=== PATIENT | female | born 1975 | race Caucasian/White ===

== ENCOUNTER → 2020-04-21 13:05 | Outpatient (BNVA) | payer OTHER, SELFPAY | PROVIDERS: PCP Internal Medicine; Referring Provider Internal Medicine; Visit Provider Physician Assistant | DX: M17.12 Unilateral primary osteoarthritis, left knee (principal) | CPT/HCPCS: 20610; 99213; J1040 ==

== ENCOUNTER → 2020-05-09 13:47 | Outpatient (BNVA) | payer OTHER, SELFPAY | PROVIDERS: PCP Internal Medicine; Referring Provider Internal Medicine; Visit Provider Urology | DX: Z76.89 Persons encountering health services in other specified circumstances (principal) ==

== ENCOUNTER → 2020-10-10 14:38 | Outpatient (BNVA) | payer OTHER, SELFPAY | PROVIDERS: PCP Internal Medicine; Visit Provider Urology ==

== ENCOUNTER 2020-10-18 08:07 | Outpatient (REF) | payer OTHER, SELFPAY ==
--- NOTE | ~2020-10-18 | XR_ITS ---
EXAMINATION: XR SHOULDER, LEFT CLINICAL INFORMATION: Shoulder pain. COMPARISON: None. TECHNIQUE: 3 views of the left shoulder. FINDINGS: Mild glenohumeral joint arthritis. No fracture or dislocation. AC joint is intact. No abnormal soft tissue calcification. XR/XR shoulder LT min 2V IMPRESSION: Mild glenohumeral joint arthritis.
== END 2020-10-18 08:08 | disposition home or self-care (01) ==
LOC: HO.HOSX 08:07
PROVIDERS: Visit Provider Physician Assistant
DX: M75.42 Impingement syndrome of left shoulder (principal); M25.512 Pain in left shoulder
CPT/HCPCS: 20610; 73030; 99212; J1020

== ENCOUNTER 2020-11-01 10:04 | Outpatient (REF) | payer OTHER, SELFPAY ==
[2020-11-01 11:24] LABS: Blood Urea Nitrogen 15 mg/dL (9-16); Estimated Glomerular Filt Rate > 60
== END 2020-11-01 10:05 | disposition home or self-care (01) ==
LOC: HO.LAB 10:04
PROVIDERS: PCP Internal Medicine; Visit Provider Urology
DX: C64.2 Malignant neoplasm of left kidney, except renal pelvis (principal); N26.1 Atrophy of kidney (terminal)
CPT/HCPCS: 36415; 82565; 84520

== ENCOUNTER 2020-11-01 14:50 | Emergency (ER) | payer OTHER, SELFPAY ==
[2020-11-01 15:02] VITALS: BP 97/57; PULSE 86; RESP 18; TEMP 35.6; O2SAT 95; BMI 21.8
[2020-11-01 15:32] LABS: Glucose, Whole Blood 89 mg/dL (60-115)
[2020-11-01] MEDS: Dextrose 5 % and 0.9 % NaCl 1,000 ML 100 ML IVCONT (16:55)
--- NOTE | 2020-11-01 17:05 | ED_ITS ---
HPI - Alcohol General Chief Complaint: ETOH/Substance Use Stated Complaint: DIZZY,ANXIETY Time Seen by Provider: 11/01/20 16:31 Source: patient, family and EMS Mode of arrival: EMS Limitations: no limitations History of Present Illness HPI narrative: 45 yo female with history of type 1 diabetes, history of DKA, kidney cancer, anxiety, depression, alcohol abuse, active smoker who presents to the ED via EMS with report of diabetic emergency. Per patient's significant other she was confused and agitated and this usually happens when her sugar is very high or very low. He states the insulin reader machine was alarming all night saying her sugar was high. She ate spaghetti-O's late last night. On EMS arrival patient's glucose was noted to be 185. They reported she drank 3 pints of liquor. She denies daily ETOH use, admits to binge drinking a few times per week. Denies illicit drug use. She denies pain or injury. On arrival she smells of alcohol and is confused. MD complaint: alcohol intoxication Last drink: Just prior to admission Chronic alcohol use: Yes Previous visits for alcohol intoxication: Yes Recent trauma: No Associated symptoms: denies other symptoms Treatments prior to arrival: none Related Data Home Medications Medication Instructions Recorded Confirmed atorvastatin 40 mg tablet 40 mg PO DAILY 04/10/20 04/15/20 insulin lispro 100 unit/mL 1 sliding scale dose SUBCUT 04/10/20 04/15/20 subcutaneous cartridge USEASDIRECTD lisinopril 5 mg tablet 5 mg PO DAILY 04/10/20 04/15/20 insulin lispro 100 unit/mL SUBCUT 05/09/20 subcutaneous solution blood sugar diagnostic #10 ea 10/10/20 blood-glucose meter #1 ea 10/10/20 insulin glargine 100 unit/mL (3 12 unit SUBCUT BID 10/10/20 mL) subcutaneous pen insulin syringe-needle U-100 0.5 #10 ea 10/10/20 mL 31 gauge x 11/26 ondansetron HCl 4 mg tablet mg PO 10/10/20 pen needle, diabetic 32 gauge x #50 ea 10/10/20 Previous Rx's Medication Instructions Recorded leg brace #1 ea 06/21/20 Allergies Allergy/AdvReac Type Severity Reaction Status Date / Time morphine [MORPHINE] Allergy Unknown RASH Verified 04/21/20 13:13 LOBSTER Allergy Unknown HIVES Uncoded 03/30/20 17:17 Review of Systems Review of Systems: Yes Unobtainable due to mental condition [facility] Past Medical History Attestation statement: The following information was validated with the patient. 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 Restless in the stretcher at times. Head: normocephalic, atraumatic. Eyes: Pupils equal, round and reactive to light. ENT: Pharynx normal. Neck: Normal inspection. Neck supple. CVS: Normal heart rate and rhythm. Pulses normal. Respiratory: No respiratory distress. Breath sounds normal. Abdomen: Soft and nontender. +BS x4 Skin: Skin warm and dry. Normal skin color. Normal skin turgor. No rashes. Extremities: No lower extremity edema. Neuro: Oriented X 2, slurred speech, moves all 4 extremities spontaneously, intermittently follows commands, non-focal. Course Course Course Narrative: 45 y/o female arriving via EMS intoxicated. Unable to get reliable history from her. Her significant other is at the bedside and admits this behavior happens frequently when she drinks and when her sugars are off. Her glucose is in the 80-90s on arrival, about 100 point drop since EMS checked it. Concern she may have misdosed her insulin? Given sandwich. Will hydrate with D5 and monitor glucose closely. Reevaluation(s) Reevaluation #1: Mental status improving. She wants to leave. Pulled out IV. ETOH level 200. No other significant lab abnormalities beyond her baseline. Her boyfriend is agreeable to take her home. She is standing up eating and drinking, refusing detox at this time. Stable for discharge home with significant other. MDM - Alcohol Lab Data Result diagrams: 11/01/20 18:15 11/01/20 18:15 Labs: Lab Results 11/01/20 11/01/20 11/01/20 Range/Units 15:29 16:40 16:58 WBC (4.8-10.8) X10*3/uL RBC (4.20-5.50) X10*6/uL Hgb (12.0-16.0) g/dl Hct (37-47) % MCV (80-98) fL MCH (27.0-33.0) pg MCHC (31.0-35.0) g/dl RDW (11.0-16.0) % Plt Count (160-400) X10*3/uL MPV (9.4-12.3) fL Immature Gran % (Auto) (0.0-0.4) % Neut % (Auto) (45-73) % Lymph % (Auto) (20-40) % [place] % (Auto) (2-11) % Eos % (Auto) (0-4) % Baso % (Auto) (0-2) % Lymph # (Auto) (1.2-4.9) X10*3/uL [place] # (Auto) (0.1-1.2) X10*3/uL Eos # (Auto) (0.0-0.4) X10*3/uL Baso # (Auto) (0.0-0.2) X10*3/uL Abs Immat Gran (auto) (0.00-0.03) X10*3/uL Absolute Neuts (auto) (2.0-8.3) X10*3/uL Absolute Nucleated RBC (0.0-0.012) X10*3/uL Nucleated RBC % (auto) (0.0-0.2) /100WBC Hold Blue Top Sodium (135-145) mmol/L Potassium (3.3-5.1) mmol/L Chloride (96-108) mmol/L Carbon Dioxide (22-29) mmol/L Anion Gap (12-20) BUN (9-16) mg/dL Creatinine (0.5-1.4) mg/dL Estim Creat Clear Calc Estimated GFR POC Glucose 89 96 (60-115) mg/dL Random Glucose (60-115) mg/dL Calcium (8.4-10.2) mg/dL Magnesium (1.6-2.6) mg/dL Total Bilirubin (0.0-1.0) mg/dL Direct Bilirubin (0.0-0.5) mg/dL AST (5-31) U/L ALT (0-31) U/L Alkaline Phosphatase (39-117) U/L Total Protein (6.5-8.0) g/dL Albumin (3.5-5.0) g/dL Urine Color YELLOW Urine Appearance HAZY Urine pH 5.0 (5.0-8.0) Ur Specific [place] <= 1.005 (1.005-1.025) Urine Protein NEG (NEG-TRACE) MG/DL Urine Glucose (UA) >=1000 H (NEG) MG/DL Urine Ketones NEG (NEG) MG/DL Urine Blood NEG (NEG) Urine Nitrite NEG (NEG) Ur Leukocyte Esterase NEG (NEG) Urine RBC 0 (0) /HPF Urine WBC 0-2 (0-4) /HPF Ur Squamous Epith Cells TRACE /LPF Urine Bacteria 4+ /LPF Urine Opiates Screen (Not Detect) Ur Barbiturates Screen (Not Detect) Ur Phencyclidine Scrn (Not Detect) Ur Amphetamines Screen (Not Detect) U Benzodiazepines Scrn (Not Detect) Urine Cocaine Screen (Not Detect) U Marijuana (THC) Screen (Not Detect) Ethyl Alcohol mg/dL 11/01/20 11/01/20 11/01/20 Range/Units 16:58 18:15 18:15 WBC 9.2 (4.8-10.8) X10*3/uL RBC 3.32 L (4.20-5.50) X10*6/uL Hgb 12.1 (12.0-16.0) g/dl Hct 35.6 L (37-47) % MCV 107.2 H (80-98) fL MCH 36.4 H (27.0-33.0) pg MCHC 34.0 (31.0-35.0) g/dl RDW 12.0 (11.0-16.0) % Plt Count 337 (160-400) X10*3/uL MPV 10.6 (9.4-12.3) fL Immature Gran % (Auto) 0.4 (0.0-0.4) % Neut % (Auto) 56.3 (45-73) % Lymph % (Auto) 33.1 (20-40) % [place] % (Auto) 6.1 (2-11) % Eos % (Auto) 3.3 (0-4) % Baso % (Auto) 0.8 (0-2) % Lymph # (Auto) 3.0 (1.2-4.9) X10*3/uL [place] # (Auto) 0.6 (0.1-1.2) X10*3/uL Eos # (Auto) 0.3 (0.0-0.4) X10*3/uL Baso # (Auto) 0.1 (0.0-0.2) X10*3/uL Abs Immat Gran (auto) 0.04 H (0.00-0.03) X10*3/uL Absolute Neuts (auto) 5.2 (2.0-8.3) X10*3/uL Absolute Nucleated RBC 0.000 (0.0-0.012) X10*3/uL Nucleated RBC % (auto) 0.0 (0.0-0.2) /100WBC Hold Blue Top SEE NOTE Sodium (135-145) mmol/L Potassium (3.3-5.1) mmol/L Chloride (96-108) mmol/L Carbon Dioxide (22-29) mmol/L Anion Gap (12-20) BUN (9-16) mg/dL Creatinine (0.5-1.4) mg/dL Estim Creat Clear Calc Estimated GFR POC Glucose (60-115) mg/dL Random Glucose (60-115) mg/dL Calcium (8.4-10.2) mg/dL Magnesium (1.6-2.6) mg/dL Total Bilirubin (0.0-1.0) mg/dL Direct Bilirubin (0.0-0.5) mg/dL AST (5-31) U/L ALT (0-31) U/L Alkaline Phosphatase (39-117) U/L Total Protein (6.5-8.0) g/dL Albumin (3.5-5.0) g/dL Urine Color Urine Appearance Urine pH (5.0-8.0) Ur Specific [place] (1.005-1.025) Urine Protein (NEG-TRACE) MG/DL Urine Glucose (UA) (NEG) MG/DL Urine Ketones (NEG) MG/DL Urine Blood (NEG) Urine Nitrite (NEG) Ur Leukocyte Esterase (NEG) Urine RBC (0) /HPF Urine WBC (0-4) /HPF Ur Squamous Epith Cells /LPF Urine Bacteria /LPF Urine Opiates Screen Not Detected (Not Detect) Ur Barbiturates Screen Not Detected (Not Detect) Ur Phencyclidine Scrn Not Detected (Not Detect) Ur Amphetamines Screen Not Detected (Not Detect) U Benzodiazepines Scrn Not Detected (Not Detect) Urine Cocaine Screen POSITIVE H (Not Detect) U Marijuana (THC) Screen Not Detected (Not Detect) Ethyl Alcohol mg/dL 11/01/20 11/01/20 Range/Units 18:15 18:15 WBC (4.8-10.8) X10*3/uL RBC (4.20-5.50) X10*6/uL Hgb (12.0-16.0) g/dl Hct (37-47) % MCV (80-98) fL MCH (27.0-33.0) pg MCHC (31.0-35.0) g/dl RDW (11.0-16.0) % Plt Count (160-400) X10*3/uL MPV (9.4-12.3) fL Immature Gran % (Auto) (0.0-0.4) % Neut % (Auto) (45-73) % Lymph % (Auto) (20-40) % [place] % (Auto) (2-11) % Eos % (Auto) (0-4) % Baso % (Auto) (0-2) % Lymph # (Auto) (1.2-4.9) X10*3/uL [place] # (Auto) (0.1-1.2) X10*3/uL Eos # (Auto) (0.0-0.4) X10*3/uL Baso # (Auto) (0.0-0.2) X10*3/uL Abs Immat Gran (auto) (0.00-0.03) X10*3/uL Absolute Neuts (auto) (2.0-8.3) X10*3/uL Absolute Nucleated RBC (0.0-0.012) X10*3/uL Nucleated RBC % (auto) (0.0-0.2) /100WBC Hold Blue Top Sodium 142 (135-145) mmol/L Potassium 4.1 (3.3-5.1) mmol/L Chloride 106 (96-108) mmol/L Carbon Dioxide 25 (22-29) mmol/L Anion Gap 15 (12-20) BUN 10 (9-16) mg/dL Creatinine 0.79 (0.5-1.4) mg/dL Estim Creat Clear Calc 79.1 Estimated GFR > 60 POC Glucose (60-115) mg/dL Random Glucose 123 H (60-115) mg/dL Calcium 9.6 (8.4-10.2) mg/dL Magnesium 2.2 (1.6-2.6) mg/dL Total Bilirubin 0.4 (0.0-1.0) mg/dL Direct Bilirubin < 0.2 (0.0-0.5) mg/dL AST 23 (5-31) U/L ALT 29 (0-31) U/L Alkaline Phosphatase 179 H (39-117) U/L Total Protein 6.4 L (6.5-8.0) g/dL Albumin 3.8 (3.5-5.0) g/dL Urine Color Urine Appearance Urine pH (5.0-8.0) Ur Specific [place] (1.005-1.025) Urine Protein (NEG-TRACE) MG/DL Urine Glucose (UA) (NEG) MG/DL Urine Ketones (NEG) MG/DL Urine Blood (NEG) Urine Nitrite (NEG) Ur Leukocyte Esterase (NEG) Urine RBC (0) /HPF Urine WBC (0-4) /HPF Ur Squamous Epith Cells /LPF Urine Bacteria /LPF Urine Opiates Screen (Not Detect) Ur Barbiturates Screen (Not Detect) Ur Phencyclidine Scrn (Not Detect) Ur Amphetamines Screen (Not Detect) U Benzodiazepines Scrn (Not Detect) Urine Cocaine Screen (Not Detect) U Marijuana (THC) Screen (Not Detect) Ethyl Alcohol 207 mg/dL Critical Care Time Critical Care Time Critical Care Time: No Discharge Plan Discharge Clinical Impression: Alcoholic intoxication Qualifiers: Complication of substance-induced condition: with unspecified complication Qualified Code(s): F10.929 - Alcohol use, unspecified with intoxication, unspecified Patient Disposition: Home, Self-Care Instructions: Cocaine Abuse (ED), Alcohol Use Disorder (ED) Additional Instructions: Recommend detox. Do not drink alcohol or use illicit drug. Monitor your glucose 4 times per day and take your insulin as directed Follow up with your doctor as needed. Prescriptions: No Action (DME) Knee Support Brace Misc See Rx Instructions .MEDSUPPLY Qty: 1 RF: 0 insulin lispro 100 unit/mL solution subcut RF: 0 lisinopril 5 mg tablet 5 mg PO DAILY RF: 0 atorvastatin 40 mg tablet 40 mg PO DAILY RF: 0 Humalog U-100 Insulin 100 unit/mL cartridge 1 sliding scale dose subcut USEASDIRECTD RF: 0
[2020-11-01 17:06] LABS: Glucose Urine UA >=1000 MG/DL (NEG); Leukocyte Esterase Urine NEG (NEG); Nitrite Urine NEG (NEG); Specific Gravity - Urine <= 1.005 (1.005-1.025); Urine Blood NEG (NEG); Urine Ketones NEG (NEG); Urine Protein NEG (NEG-TRACE)
--- NOTE | 2020-11-01 17:08 | PC.NURSE ---
Pt walking to bathroom lowering herself to the floor. She refuses to respond to questions at times. POC noted by EMS in 180. Initial poc here in 80s. Pt's implanted glucose meter correlating with hospital glucometer. It was noted that her poc continued to drop from 80s even after having a tuna sandwich. Bhavani KELLY aware. Pt denies taking more than prescribed insulin at home. repeat poc 96. IVF of D5NS started at 100ml/hr.
[2020-11-01 17:09] LABS: Color Urine YELLOW
[2020-11-01 17:10] LABS: Appearance Urine HAZY
[2020-11-01 17:13] VITALS: BP 103/71; PULSE 89; RESP 18; TEMP 36.5; O2SAT 100
[2020-11-01 17:14] LABS: Glucose, Whole Blood 96 mg/dL (60-115)
[2020-11-01 17:16] LABS: Bacteria Urine 4+ /LPF; RBC Urine 0 /HPF (0); Squamous Epithelial Cell Urine TRACE /LPF; WBC Urine 0-2 /HPF (0-4)
[2020-11-01 17:36] LABS: Amphetamine Screen Urine Not Detected (Not Detect); Barbiturates, Urine Not Detected (Not Detect); Benzodiazepines Screen Urine Not Detected (Not Detect); Cannabinoid Screen Urine Not Detected (Not Detect); Cocaine Screen Urine POSITIVE (Not Detect); Opiate Screen Urine Not Detected (Not Detect); Phencyclidine Screen Urine Not Detected (Not Detect)
[2020-11-01 18:27] LABS: MANUAL DIFF FLAG NO
[2020-11-01 18:43] LABS: Basophils Absolute Auto 0.1 X10*3/uL (0.0-0.2); Basophils Percent Auto 0.8 % (0-2); Eosinophils Absolute Auto 0.3 X10*3/uL (0.0-0.4); Eosinophils Percent Auto 3.3 % (0-4); Hematocrit 35.6 % (37-47); Hemoglobin 12.1 g/dl (12.0-16.0); Imm Gran Abs Auto 0.04 X10*3/uL (0.00-0.03); Imm Gran Pct Auto 0.4 % (0.0-0.4); Lymphocytes Percent Auto 33.1 % (20-40); Mean Corpuscular Hemoglobin 36.4 pg (27.0-33.0); Mean Corpuscular Volume 107.2 fL (80-98); Mean Platelet Volume 10.6 fL (9.4-12.3); Monocytes Absolute Auto 0.6 X10*3/uL (0.1-1.2); Monocytes Percent Auto 6.1 % (2-11); Neutrophils Absolute Auto 5.2 X10*3/uL (2.0-8.3); Neutrophils Percent Auto 56.3 % (45-73); Platelet Count 337 X10*3/uL (160-400); Red Blood Count 3.32 X10*6/uL (4.20-5.50); White Blood Count 9.2 X10*3/uL (4.8-10.8)
[2020-11-01 18:51] LABS: Ethanol 207 mg/dL
[2020-11-01 18:53] LABS: Alanine Aminotransferase 29 U/L (0-31); Albumin Level 3.8 g/dL (3.5-5.0); Alkaline Phosphatase 179 U/L (39-117); Anion Gap 15 (12-20); Aspartate Amino Transferase 23 U/L (5-31); Bilirubin Direct < 0.2 mg/dL (0.0-0.5); Bilirubin Total 0.4 mg/dL (0.0-1.0); Blood Urea Nitrogen 10 mg/dL (9-16); Calcium 9.6 mg/dL (8.4-10.2); Carbon Dioxide 25 mmol/L (22-29); Chloride 106 mmol/L (96-108); Creatinine Clr Calc Pharmacy 79.1; Estimated Glomerular Filt Rate > 60; Glucose Random 123 mg/dL (60-115); Magnesium 2.2 mg/dL (1.6-2.6); Potassium 4.1 mmol/L (3.3-5.1); Sodium 142 mmol/L (135-145); Total Protein 6.4 g/dL (6.5-8.0)
--- NOTE | 2020-11-01 19:01 | PC.NURSE ---
Patient's boyfriend approached this RN while receiving RN to RN report from Harriet Ulloa RN to notify this RN that the patient removed her IV from her own arm. Bleeding controlled, gauze applied. Pt ambulating with steady gait. Boyfriend willing to provide ride home for patient. Provider present to speak with patient and family, preparing for discharge home with sober ride from boyfriend. Awaiting discharge paperwork.
== END 2020-11-01 19:10 | disposition home or self-care (01) ==
PROVIDERS: Physician Assistant; Emergency Provider Internal Medicine; PCP Internal Medicine
DX: F10.120 Alcohol abuse with intoxication, uncomplicated (principal); Y90.7 Blood alcohol level of 200-239 mg/100 ml; F14.10 Cocaine abuse, uncomplicated; R42 Dizziness and giddiness; F41.9 Anxiety disorder, unspecified; E10.9 Type 1 diabetes mellitus without complications; I10 Essential (primary) hypertension; F17.200 Nicotine dependence, unspecified, uncomplicated; Z96.41 Presence of insulin pump (external) (internal); Z79.4 Long term (current) use of insulin; Z85.528 Personal history of other malignant neoplasm of kidney; Z79.02 Long term (current) use of antithrombotics/antiplatelets
CPT/HCPCS: 36415; 80048; 80076; 80307; 80320; 81001; 82947; 83735; 85025; 96365; 96366; 99284

== ENCOUNTER 2021-03-07 15:54 | Emergency (ER) | payer OTHER, SELFPAY ==
[2021-03-07 15:59] VITALS: RESP 16; BMI 22.8
--- NOTE | 2021-03-07 16:03 | PC.NURSE ---
PATIENT STATES SHE DRANK A FEW NIPS OF FIREBALL
--- NOTE | 2021-03-07 16:06 | PC.NURSE ---
PT VERBALLY AGGRESSIVE AND SHORT WITH MEDICAL STAFF. STATES THAT SHE DOESNT KNOW WHY SHE IS HERE AND THAT SHE WANTS TO LEAVE BUT THEN WHEN THIS RN STATES SHE CAN LEAVE AMA SHE BEGAN TO GET EMOTIONAL AND APOLOGIZE AND STATE SHE WILL STAY.
[2021-03-07 16:11] LABS: Glucose, Whole Blood 381 mg/dL (60-115)
--- NOTE | 2021-03-07 16:14 | ED.GENADULT ---
HPI - General Adult General Chief complaint: Weakness Stated complaint: lethargy/hyperglycemia Time Seen by Provider: 03/07/21 16:06 Source: patient Mode of arrival: EMS History of Present Illness HPI narrative: ?45 yo female with history of type 1 diabetes, history of DKA, kidney cancer, anxiety, depression, alcohol abuse, active smoker who presents to the ED via EMS with report of elevated blood sugar. Patient told her nurse the only thing she has eaten or drink today was 1 cup of fireball. The patient is stating she does not want to be here and she wants me to remove her IV. She would like to go home. She called her boyfriend to come pick her up. I tried to educate her on why she should stay, and the dangers of DKA up to including . I also try to educate her on how to bring down her blood sugars slowly and safely at home with drinking water and injecting insulin. She told me, ?she knows the drill ?. Patient ripped our her IV and walked out, our nurse was able to get the patient to sign the AMA forms as she was walking out. Related Data Home Medications Medication Instructions Recorded Confirmed atorvastatin 40 mg tablet 40 mg PO DAILY 04/10/20 04/15/20 insulin lispro 100 unit/mL 1 sliding scale dose SUBCUT 04/10/20 04/15/20 subcutaneous cartridge (Humalog USEASDIRECTD U-100 Insulin) lisinopril 5 mg tablet 5 mg PO DAILY 04/10/20 04/15/20 insulin lispro 100 unit/mL SUBCUT 05/09/20 subcutaneous solution blood sugar diagnostic #10 ea 10/10/20 blood-glucose meter #1 ea 10/10/20 insulin glargine 100 unit/mL (3 12 unit SUBCUT BID 10/10/20 mL) subcutaneous pen insulin syringe-needle U-100 0.5 #10 ea 10/10/20 mL 31 gauge x 11/26 ondansetron HCl 4 mg tablet mg PO 10/10/20 pen needle, diabetic 32 gauge x #50 ea 10/10/20 Previous Rx's Medication Instructions Recorded leg brace (Knee Support Brace) #1 ea 06/21/20 Allergies Allergy/AdvReac Type Severity Reaction Status Date / Time morphine [MORPHINE] Allergy Unknown RASH Verified 10/09/20 13:13 LOBSTER Allergy Unknown HIVES Uncoded 03/30/20 17:17 Review of Systems Review of Systems: Unable to obtain du to patient's not wanting to stay or answer any of my questions. [facility] Past Medical History Medical History Diabetes mellitus HTN (hypertension) Malignant neoplasm of left kidney 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 Surgical History History of hysterectomy History of kidney surgery Social History Social History Advance Directives: No Advance Directives Information Provided: Yes Physical Exam Vital Signs: Vital Signs: Last Vital Signs Resp 16 03/07/21 15:59 Body Mass Index 22.8 Const: General: poor hygiene and tired appearing Nutritional Appearance: average body habitus Resp: Effort & Inspection: normal respiratory effort and able to speak in complete sentences Psych: Appearance: disheveled Speech and movement: Normal speech and movement present Affect: Irritable affect present Attitude: Belligerent attititude/behavior present Course Course Course Narrative: POC 381. Patient declines medical care or advice at this time and would like to leave. Patient ripped out her IV after I explained the nurse would be in the room to remove her IV and have her sign some paperwork. After being belligerent and rude with the staff, the patient left AMA, signed paperwork as she was walking out. Medical Decision Making Lab Data Labs: Lab Results 03/07/21 Range/Units 16:08 POC Glucose 381 H* (60-115) mg/dL Discharge Plan Discharge Clinical Impression: Elevated random blood glucose level Patient Disposition: Left Against Medical Advice Prescriptions: No Action (DME) Knee Support Brace Misc See Rx Instructions .MEDSUPPLY Qty: 1 RF: 0 insulin lispro 100 unit/mL solution subcut RF: 0 lisinopril 5 mg tablet 5 mg PO DAILY RF: 0 atorvastatin 40 mg tablet 40 mg PO DAILY RF: 0 Humalog U-100 Insulin 100 unit/mL cartridge 1 sliding scale dose subcut USEASDIRECTD RF: 0
--- NOTE | 2021-03-07 16:19 | PC.NURSE ---
patient was seen by colleen gibson, advised to stay but patient was insistent on leaving, verbally aggressive to staff. pt signed ama form. ambulatory with steady gait
== END 2021-03-07 16:55 | disposition left against medical advice (07) ==
PROVIDERS: Emergency Provider Internal Medicine
DX: E11.65 Type 2 diabetes mellitus with hyperglycemia (principal); R53.1 Weakness; F33.1 Major depressive disorder, recurrent, moderate; F41.9 Anxiety disorder, unspecified; Z79.899 Other long term (current) drug therapy; Z79.4 Long term (current) use of insulin
CPT/HCPCS: 82947; 99283

== ENCOUNTER 2021-03-29 18:47 | Emergency (ER) | payer OTHER, SELFPAY ==
--- NOTE | ~2021-03-29 | CT_ITS ---
EXAMINATION: CT ABDOMEN AND PELVIS WITHOUT CONTRAST CLINICAL INFORMATION: Left-sided abdominal pain with question of colitis COMPARISON: 03/11/2020 TECHNIQUE: Multidetector volumetric imaging was performed from the superior aspect of the liver through the pubic symphysis. Sagittal and coronal reformatted images were obtained on the technologist's workstation. This CT examination was performed using dose optimization techniques as appropriate, variously including the following: *Automated exposure control *Adjustment of mA and/or kV according to patient size (this includes techniques or standardized protocols for targeted exams where dose is matched to indication/reason for exam; i.e. extremities or head) *Use of iterative reconstruction technique DLP: 632 mGy-cm FINDINGS: LUNG BASES: Bibasilar atelectasis present. No pleural effusions. LIVER, GALLBLADDER, AND BILIARY TREE: The liver is enlarged measuring 20 cm in cephalocaudad dimension but is normal in shape and attenuation. Focal fatty infiltration is present adjacent to the falciform ligament. No worrisome focal hepatic lesion or biliary ductal dilatation is present. The gallbladder is unremarkable with no evidence of radiopaque gallstones, gallbladder wall thickening, or obvious pericholecystic inflammatory changes. PANCREAS: Unremarkable. SPLEEN: Unremarkable. ADRENAL GLANDS: Unremarkable. KIDNEYS AND URETERS: The kidneys are normal in size, shape, and attenuation. No hydronephrosis, hydroureter, or calculi seen. No perinephric stranding. BLADDER: Unremarkable. GASTROINTESTINAL TRACT: The small and large bowel are unremarkable. The appendix is is not seen. ABDOMINAL WALL: No significant hernia is appreciated. LYMPH NODES: No retroperitoneal lymphadenopathy. VASCULAR: Marked aortoiliofemoral calcific plaque without aneurysm. PELVIC VISCERA: Surgically removed OSSEOUS STRUCTURES: Unremarkable. CT/CT abdomen pelvis wo con IMPRESSION: No significant abnormality detected. No evidence of colitis.
--- NOTE | ~2021-03-29 | CT_ITS ---
EXAMINATION: CT HEAD. CHEST. CLINICAL INFORMATION: Altered mental status. COMPARISON: None TECHNIQUE: CT brain 07/08/2019 FINDINGS: BRAIN: There is no acute intra-axial, extra-axial bleed, masses, collection or midline shift. There is no acute infarction in evolution. The lateral ventricles are symmetrical in size and configuration without enlargement. Hernandez to white matter difference is maintained normal. Bone windows reveal no calvarial abnormality. The paranasal sinuses and mastoid sinuses are well-aerated. No scalp soft tissue swelling seen. CHEST X-RAY: The lungs are well-expanded and clear of acute process. The heart size and pulmonary vascularity is normal. No gross bony abnormality seen. CT/CT head/brain wo con IMPRESSION: No acute intracranial process seen. There is no acute cardiopulmonary process.
[2021-03-29 18:57] VITALS: BP 132/88; PULSE 90; O2SAT 97
[2021-03-29 18:59] VITALS: BP 149/79; PULSE 77; RESP 19; O2SAT 100; BMI 26.5
[2021-03-29 19:05] LABS: Glucose, Whole Blood 112 mg/dL (60-115)
[2021-03-29 19:35] LABS: MANUAL DIFF FLAG NO
[2021-03-29 19:36] LABS: Basophils Absolute Auto 0.1 X10*3/uL (0.0-0.2); Basophils Percent Auto 0.9 % (0-2); Eosinophils Absolute Auto 0.2 X10*3/uL (0.0-0.4); Eosinophils Percent Auto 2.1 % (0-4); Hematocrit 42.6 % (37-47); Hemoglobin 14.6 g/dl (12.0-16.0); Imm Gran Abs Auto 0.02 X10*3/uL (0.00-0.03); Imm Gran Pct Auto 0.3 % (0.0-0.4); Lymphocytes Absolute Auto 1.7 X10*3/uL (1.2-4.9); Lymphocytes Percent Auto 24.3 % (20-40); Mean Corpuscular HGB Conc 34.3 g/dl (31.0-35.0); Mean Corpuscular Hemoglobin 35.5 pg (27.0-33.0); Mean Corpuscular Volume 103.6 fL (80-98); Mean Platelet Volume 10.2 fL (9.4-12.3); Monocytes Absolute Auto 0.5 X10*3/uL (0.1-1.2); Monocytes Percent Auto 6.5 % (2-11); Neutrophils Absolute Auto 4.7 X10*3/uL (2.0-8.3); Neutrophils Percent Auto 65.9 % (45-73); Platelet Count 316 X10*3/uL (160-400); Red Blood Count 4.11 X10*6/uL (4.20-5.50); Red Cell Distribution Width 13.2 % (11.0-16.0); White Blood Count 7.1 X10*3/uL (4.8-10.8)
[2021-03-29 19:52] LABS: Glucose, Whole Blood 66 mg/dL (60-115)
[2021-03-29 19:53] LABS: Alanine Aminotransferase 17 U/L (0-31); Albumin Level 4.4 g/dL (3.5-5.0); Alkaline Phosphatase 200 U/L (39-117); Anion Gap 17 (12-20); Aspartate Amino Transferase 28 U/L (5-31); Bilirubin Total 0.6 mg/dL (0.0-1.0); Blood Urea Nitrogen 10 mg/dL (9-16); Calcium 10.3 mg/dL (8.4-10.2); Carbon Dioxide 25 mmol/L (22-29); Chloride 105 mmol/L (96-108); Creatinine Clr Calc Pharmacy 81.6; Estimated Glomerular Filt Rate > 60; Glucose Random 70 mg/dL (60-115); Potassium 4.2 mmol/L (3.3-5.1); Sodium 143 mmol/L (135-145); Total Protein 7.9 g/dL (6.5-8.0)
[2021-03-29 20:06] LABS: Appearance Urine HAZY; Color Urine YELLOW; Glucose Urine UA 250 MG/DL (NEG); Leukocyte Esterase Urine TRACE (NEG); Nitrite Urine NEG (NEG); Specific Gravity - Urine <= 1.005 (1.005-1.025); UACC Culture Trigger YES; Urine Blood NEG (NEG); Urine Ketones NEG (NEG); Urine Protein NEG (NEG-TRACE)
[2021-03-29 20:14] LABS: Bacteria Urine 1+ /LPF; RBC Urine 0 /HPF (0); Squamous Epithelial Cell Urine TRACE /LPF; WBC Urine 0-2 /HPF (0-4)
--- NOTE | 2021-03-29 20:16 | ED.GENADULT ---
HPI - General Adult General Chief complaint: General Medical Stated complaint: LOW BLOOS SUGAR Time Seen by Provider: 03/29/21 19:55 Source: patient and EMS Mode of arrival: EMS Limitations: no limitations History of Present Illness HPI narrative: 46-year-old female with history of type 1 diabetes using insulin injection, patient takes Lantus as long-acting and Humalog as short-acting, patient remembers that she took Lantus yesterday twice (double of her normal dose), patient blood sugar been dropping down patient was found by her boyfriend unconscious with a low blood sugar, patient was given D5 by EMS with improvement of her mental status., on arrival patient blood sugar was 116, patient was given food and juice blood pressure now is 60. Patient declined fever or chills. Patient feels confused and disoriented. Related Data Home Medications Medication Instructions Recorded Confirmed blood-glucose meter #1 ea 10/10/20 insulin glargine 100 unit/mL (3 26 unit SUBCUT DAILY 10/10/20 03/29/21 mL) subcutaneous pen insulin syringe-needle U-100 0.5 #10 ea 10/10/20 mL 31 gauge x 11/26 ondansetron HCl 4 mg tablet 4 mg PO Q8H PRN 10/10/20 03/29/21 pen needle, diabetic 32 gauge x #50 ea 10/10/20 estradiol 0.05 mg/24 hr semiweekly 1 patch TOPICAL SUWE 03/29/21 03/29/21 transdermal patch gabapentin 300 mg capsule 1 cap PO BID 03/29/21 03/29/21 insulin lispro 100 unit/mL See Rx Instructions .ROUTE .COMPLEX 03/29/21 03/29/21 subcutaneous solution (Admelog U-100 Insulin lispro) Previous Rx's Medication Instructions Recorded leg brace (Knee Support Brace) #1 ea 06/21/20 Allergies Allergy/AdvReac Type Severity Reaction Status Date / Time morphine [MORPHINE] Allergy Unknown RASH Verified 04/21/20 13:13 LOBSTER Allergy Unknown HIVES Uncoded 03/30/20 17:17 Review of Systems Review of Systems: All other systems are reviewed and are negative Constitutional: Reports as per HPI and Reports no additional constitutional complaints Eyes: Reports as per HPI and Reports no additional eye complaints Reports system reviewed and no additional complaints, except as documented Cardiovascular: Reports as per HPI and Reports no additional cardiovascular complaints Respiratory: Reports as per HPI and Reports no additional respiratory complaints Gastrointestinal: Reports as per HPI and Reports no additional gastrointestinal complaints Genitourinary: Reports no additional female genitourinary complaints Musculoskeletal: Reports no additional musculoskeletal complaints Skin/Breast: Reports system reviewed and no additional complaints, except as docu Psychiatric: Reports no additional psychiatric complaints Endocrine: Reports no additional endocrine complaints Hematologic/Lymphatic: Reports no additional hematologic/lymphatic complaints Allergic/Immunologic: Reports no additional allergic/immunologic complaints Reports system reviewed and no additional complaints, except as documented and Reports Abnormal speech present [facility] Past Medical History Medical History Diabetes mellitus HTN (hypertension) Malignant neoplasm of left kidney 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 Blood pressure normal. Heart rate normal. Respiration rate normal. Temperature normal. Oxygen saturation normal. Appearance: Alert. Oriented X3. No acute distress. Head: Normal external exam. Normocephalic. Atraumatic. No [place] signs noted. No raccoon eyes noted Eyes: PERRLA. EOMI. Conjunctiva and sclera normal. Eyelids normal. ENT: TM's Normal. Pharynx normal. Uvula midline. Moist mucous membranes. No trismus noted. No drooling noted. No muffled voice noted. Neck: Normal inspection. Neck supple. FROM. No adenopathy. Thyroid Normal. No meningeal signs. No neck mass noted. CVS: Normal heart rate and rhythm. Heart sound normal. No murmurs noted. Pulses normal throughout. Respiratory: No respiratory distress. Painless inspiration. Breath sounds normal. No wheezes/rales/rhonchi noted. Chest nontender. No accessory muscle usage noted or decreased air movement noted. Abdomen: Soft, mild tenderness mostly on the left side, no rebound tenderness, no guarding. Bowel sounds normal in all 4 quadrants. No distention noted. No organomegaly noted. No visible injury noted. Back: No CVA tenderness. Full range of motion noted. Skin: Skin warm and dry. Normal skin color. Normal skin turgor. No rashes/lesions/lacerations noted. Extremities: No lower extremity edema. Extremities exhibit normal range of motion. Extremities nontender. Neuro: Oriented X 3. Cranial nerve exam: II-XII are grossly intact No motor deficit. No sensory deficit. Reflexes normal. Course Course Course Narrative: Assessment and plan. 46-year-old female with type 1 diabetes insulin-dependent came in with hypoglycemia after was found unresponsive with low blood sugar, blood sugars remaining low after given p.o. intake and D50 by EMS, patient admitted to taking an extra dose of long-acting insulin yesterday which might be the reason of keeping her BS low. Will admit the patient for observation and serial blood sugar check. Medical Decision Making Lab Data Lab results reviewed: Yes I reviewed the patient's lab results. Result diagrams: 03/29/21 19:25 03/29/21 19:25 Labs: Lab Results 03/29/21 03/29/21 03/29/21 Range/Units 18:59 19:25 19:25 WBC 7.1 (4.8-10.8) X10*3/uL RBC 4.11 L D (4.20-5.50) X10*6/uL Hgb 14.6 D (12.0-16.0) g/dl Hct 42.6 (37-47) % MCV 103.6 H (80-98) fL MCH 35.5 H (27.0-33.0) pg MCHC 34.3 (31.0-35.0) g/dl RDW 13.2 (11.0-16.0) % Plt Count 316 (160-400) X10*3/uL MPV 10.2 (9.4-12.3) fL Immature Gran % (Auto) 0.3 (0.0-0.4) % Neut % (Auto) 65.9 (45-73) % Lymph % (Auto) 24.3 (20-40) % [place] % (Auto) 6.5 (2-11) % Eos % (Auto) 2.1 (0-4) % Baso % (Auto) 0.9 (0-2) % Lymph # (Auto) 1.7 (1.2-4.9) X10*3/uL [place] # (Auto) 0.5 (0.1-1.2) X10*3/uL Eos # (Auto) 0.2 (0.0-0.4) X10*3/uL Baso # (Auto) 0.1 (0.0-0.2) X10*3/uL Abs Immat Gran (auto) 0.02 (0.00-0.03) X10*3/uL Absolute Neuts (auto) 4.7 (2.0-8.3) X10*3/uL Absolute Nucleated RBC 0.000 (0.0-0.012) X10*3/uL Nucleated RBC % (auto) 0.0 (0.0-0.2) /100WBC Sodium 143 (135-145) mmol/L Potassium 4.2 (3.3-5.1) mmol/L Chloride 105 (96-108) mmol/L Carbon Dioxide 25 (22-29) mmol/L Anion Gap 17 (12-20) BUN 10 (9-16) mg/dL Creatinine 0.78 (0.5-1.4) mg/dL Estim Creat Clear Calc 81.6 Estimated GFR > 60 POC Glucose 112 (60-115) mg/dL Random Glucose 70 (60-115) mg/dL Calcium 10.3 H D (8.4-10.2) mg/dL Total Bilirubin 0.6 (0.0-1.0) mg/dL AST 28 (5-31) U/L ALT 17 (0-31) U/L Alkaline Phosphatase 200 H (39-117) U/L Total Protein 7.9 D (6.5-8.0) g/dL Albumin 4.4 (3.5-5.0) g/dL Urine Color Urine Appearance Urine pH (5.0-8.0) Ur Specific [place] (1.005-1.025) Urine Protein (NEG-TRACE) MG/DL Urine Glucose (UA) (NEG) MG/DL Urine Ketones (NEG) MG/DL Urine Blood (NEG) Urine Nitrite (NEG) Ur Leukocyte Esterase (NEG) Urine RBC (0) /HPF Urine WBC (0-4) /HPF Ur Squamous Epith Cells /LPF Urine Bacteria /LPF 03/29/21 03/29/21 Range/Units 19:36 20:00 WBC (4.8-10.8) X10*3/uL RBC (4.20-5.50) X10*6/uL Hgb (12.0-16.0) g/dl Hct (37-47) % MCV (80-98) fL MCH (27.0-33.0) pg MCHC (31.0-35.0) g/dl RDW (11.0-16.0) % Plt Count (160-400) X10*3/uL MPV (9.4-12.3) fL Immature Gran % (Auto) (0.0-0.4) % Neut % (Auto) (45-73) % Lymph % (Auto) (20-40) % [place] % (Auto) (2-11) % Eos % (Auto) (0-4) % Baso % (Auto) (0-2) % Lymph # (Auto) (1.2-4.9) X10*3/uL [place] # (Auto) (0.1-1.2) X10*3/uL Eos # (Auto) (0.0-0.4) X10*3/uL Baso # (Auto) (0.0-0.2) X10*3/uL Abs Immat Gran (auto) (0.00-0.03) X10*3/uL Absolute Neuts (auto) (2.0-8.3) X10*3/uL Absolute Nucleated RBC (0.0-0.012) X10*3/uL Nucleated RBC % (auto) (0.0-0.2) /100WBC Sodium (135-145) mmol/L Potassium (3.3-5.1) mmol/L Chloride (96-108) mmol/L Carbon Dioxide (22-29) mmol/L Anion Gap (12-20) BUN (9-16) mg/dL Creatinine (0.5-1.4) mg/dL Estim Creat Clear Calc Estimated GFR POC Glucose 66 (60-115) mg/dL Random Glucose (60-115) mg/dL Calcium (8.4-10.2) mg/dL Total Bilirubin (0.0-1.0) mg/dL AST (5-31) U/L ALT (0-31) U/L Alkaline Phosphatase (39-117) U/L Total Protein (6.5-8.0) g/dL Albumin (3.5-5.0) g/dL Urine Color YELLOW Urine Appearance HAZY Urine pH 6.0 (5.0-8.0) Ur Specific [place] <= 1.005 (1.005-1.025) Urine Protein NEG (NEG-TRACE) MG/DL Urine Glucose (UA) 250 H (NEG) MG/DL Urine Ketones NEG (NEG) MG/DL Urine Blood NEG (NEG) Urine Nitrite NEG (NEG) Ur Leukocyte Esterase TRACE H (NEG) Urine RBC 0 (0) /HPF Urine WBC 0-2 (0-4) /HPF Ur Squamous Epith Cells TRACE /LPF Urine Bacteria 1+ /LPF Imaging Data CT scan - head: Radiologist's impression: No acute intracranial process seen. ? There is no acute cardiopulmonary process.? Chest x-ray: Radiologist's impression: No acute cardiopulmonary process. CT scan - abdomen: Radiologist's impression: IMPRESSION: No significant abnormality detected. No evidence of colitis.? Discharge Plan Discharge Clinical Impression: Hypoglycemia due to insulin Patient Disposition: Admitted As Inpatient
[2021-03-29 21:40] VITALS: BP 113/49; PULSE 83; RESP 18; O2SAT 99
--- NOTE | 2021-03-29 22:13 | P.HPHOSP_ITS ---
History of Present Illness Date of Service: 03/29/21 Chief Complaint: Brief unresponsive episode 46-year-old female with a past medical history of type 1 diabetes, history of renal cell carcinoma, osteoarthritis shoulder impingement presented to the hospital with a chief complaint unresponsive episode. Most of the history provided by the patient and patient's family at bedside Reportedly patient went shopping with her daughter then she took her short- acting insulin and on her way back to the home she noted sugar on monitor and then she took another insulin; after she went home she was found by her friends that she has of the falls have; subsequently EMS was called in; when the EMS came in patient was noted to fingerstick glucose less than 25; given glucose and subsequently bother the hospital for further evaluation. On presentation fingerstick glucose was 100 and followed by came down to 60; patient was given dextrose and orange juice; patient was more alert and awake in the ER. Patient denies any chest pain palpitations lightheadedness or dizziness. Denies any seizure-like activity. Patient mentioned that she does not recall the event. Denies any numbness tingling or focal weakness. Denies any signs of infection. Complains of mild abdominal discomfort on the left lower quadrant; complains of nausea and vomiting but chronic; no new change. Denies any diarrhea. Review of all other systems is negative except mentioned above ER course: Per ER team patient exam was nonfocal; her episode presumed to be in the setting hypoglycemia; given dextrose; admitted to the hospital for further management. 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 Protocol Glucose 15 gm 03/29/21 22:07 Glucose Gel 15 Gm Gel..Gram. PO Q15M PRN per Hypoglycemia Standing Ord. Protocol Dextrose/Sodium Chloride 1,000 mls @ 75 mls/hr 03/29/21 22:15 D51/2ns IVCONT .[id number] [facility] Insulin Human Lispro 0 unit 03/30/21 07:30 Insulin Lispro 100 Unit/Ml 3 Ml Vial SUBCUT QIDACHS [facility] Protocol Melatonin 6 mg 03/29/21 22:07 Melatonin 3 Mg Tablet PO BEDTIME PRN Insomnia Senna 17.2 mg 03/29/21 22:07 Sennosides 8.6 Mg Tablet PO BEDTIME PRN Constipation Sodium Chloride 3 ml 03/30/21 00:00 0.9 % Sodium Chloride Flush 3 Ml Syringe IVFLUSH QSHIFT [facility] Home Medications Medication Instructions Recorded Confirmed Last Taken Type blood-glucose meter #1 ea 10/10/20 Unknown History insulin glargine 100 unit/mL (3 26 unit SUBCUT DAILY 10/10/20 03/29/21 Unknown History mL) subcutaneous pen insulin syringe-needle U-100 0.5 #10 ea 10/10/20 Unknown History mL 31 gauge x 11/26 ondansetron HCl 4 mg tablet 4 mg PO Q8H PRN 10/10/20 03/29/21 03/29/21 History pen needle, diabetic 32 gauge x #50 ea 10/10/20 Unknown History estradiol 0.05 mg/24 hr semiweekly 1 patch TOPICAL SUWE 03/29/21 03/29/21 Unknown History transdermal patch gabapentin 300 mg capsule 1 cap PO BID 03/29/21 03/29/21 Unknown History insulin lispro 100 unit/mL See Rx Instructions .ROUTE .COMPLEX 03/29/21 03/29/21 Unknown History subcutaneous solution (Admelog U-100 Insulin lispro) Physical Exam Vital Signs and Narrative: Vital Signs: Last Vital Signs Pulse 83 03/29/21 21:40 Resp 18 03/29/21 21:40 BP 113/49 L 03/29/21 21:40 Pulse Ox 99 03/29/21 21:40 Body Mass Index 26.5 Gen: Appears be in no acute distress HEENT: NCAT, Moist mucosa. Pulmonary: Vesicular breath sounds, fair air entry CVS: Normal S1-S2 Abdomen: BS+, Soft, Nontender Extremities: Warm well perfused Neuro: Alert and awake. Grossly nonfocal Results Labs CBC and Chem 7: 03/29/21 19:25 03/29/21 19:25 Labs: Laboratory Results - last 24 hr 03/29/21 03/29/21 03/29/21 18:59 19:25 19:25 MCV 103.6 H MCH 35.5 H MCHC 34.3 RDW 13.2 Plt Count 316 MPV 10.2 Immature Gran % (Auto) 0.3 Neut % (Auto) 65.9 Lymph % (Auto) 24.3 [place] % (Auto) 6.5 Eos % (Auto) 2.1 Baso % (Auto) 0.9 Lymph # (Auto) 1.7 [place] # (Auto) 0.5 Eos # (Auto) 0.2 Baso # (Auto) 0.1 Abs Immat Gran (auto) 0.02 Absolute Neuts (auto) 4.7 Absolute Nucleated RBC 0.000 Nucleated RBC % (auto) 0.0 Anion Gap 17 Estim Creat Clear Calc 81.6 Estimated GFR > 60 POC Glucose 112 Random Glucose 70 Calcium 10.3 H D Total Bilirubin 0.6 AST 28 ALT 17 Alkaline Phosphatase 200 H Total Protein 7.9 D Albumin 4.4 Urine Color Urine Appearance Urine pH Ur Specific [place] Urine Protein Urine Glucose (UA) Urine Ketones Urine Blood Urine Nitrite Ur Leukocyte Esterase Urine RBC Urine WBC Ur Squamous Epith Cells Urine Bacteria 03/29/21 03/29/21 19:36 20:00 MCV MCH MCHC RDW Plt Count MPV Immature Gran % (Auto) Neut % (Auto) Lymph % (Auto) [place] % (Auto) Eos % (Auto) Baso % (Auto) Lymph # (Auto) [place] # (Auto) Eos # (Auto) Baso # (Auto) Abs Immat Gran (auto) Absolute Neuts (auto) Absolute Nucleated RBC Nucleated RBC % (auto) Anion Gap Estim Creat Clear Calc Estimated GFR POC Glucose 66 Random Glucose Calcium Total Bilirubin AST ALT Alkaline Phosphatase Total Protein Albumin Urine Color YELLOW Urine Appearance HAZY Urine pH 6.0 Ur Specific [place] <= 1.005 Urine Protein NEG Urine Glucose (UA) 250 H Urine Ketones NEG Urine Blood NEG Urine Nitrite NEG Ur Leukocyte Esterase TRACE H Urine RBC 0 Urine WBC 0-2 Ur Squamous Epith Cells TRACE Urine Bacteria 1+ Imaging Radiologist's Impressions: Impressions Head CT 03/29/21 19:55 IMPRESSION: No acute intracranial process seen. There is no acute cardiopulmonary process. Chest X-Ray 03/29/21 20:04 IMPRESSION: No acute intracranial process seen. There is no acute cardiopulmonary process. Assessment and Plan (1) Hypoglycemia due to insulin: Status: Acute (2) Unresponsive episode: Status: Acute 46-year-old female with a past medical history of type 1 diabetes, history of renal cell carcinoma, osteoarthritis shoulder impingement presented to the hospital with a chief complaint unresponsive episode. Unresponsive episode: Likely in the setting of severe hypoglycemia. Patient currently mentating well. Alerted and oriented x3. Nonfocal exam. Telemetry. Cycle cardiac enzymes. Hypoglycemia: Likely the setting excessive insulin injection glucose improving. Will continue D5 normal saline IV fluids. Patient's mental status improving. Supportive care. History of type 1 diabetes: Give the patient insulin sliding scale for now. Will add Lantus even [place]. Monitor fingerstick glucose. Abdominal pain: To have left lower quadrant abdominal tenderness. CT abdomen pending DVT prophylaxis: SCD boots Code status: Full code Quality Stroke Does the patient have a stroke diagnosis?: No VTE Prior VTE?: No VTE Risk Level:: Medical - moderate - high VTE Device Contraindication: N/A - Device Ordered VTE Drug Contraindication: Treatment Not Indicated
--- NOTE | 2021-03-29 22:29 | PHA.MEDREC ---
Pharmacy Consult ? Medication Reconciliation Pharmacy has completed the medication reconciliation.
[2021-03-29] MEDS: Dextrose 5 % and 0.45 % NaCl 1,000 ML 75 ML IVCONT (23:18)
--- NOTE | 2021-03-29 23:25 | PC.NURSE ---
RN CALLED HOSPITALIST TO PROVIDE UPDATE ON PATIENT'S REQUEST FOR DC HOME. 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 PER HOSPITALIST THIS RN TO ENCOURAGE PATIEN TO STAY AT LEAST OVERNIGHT. HOSPITALIST TO COME DOWN AND SPEAK WITH PATIENT IF SHE CONTINUES TO REQUEST DISCHARGE HOME. PT IS ALERT, ORIENTED, SKIN PWD, RESPIRATIONS EVEN AND UNLABORED WITH NO DISTRESS. VISITOR REMAINS AT BEDSIDE.
--- NOTE | 2021-03-29 23:54 | PM.EVENT ---
Event Note Date of Service: 03/29/21 Event Note: Against medical advise note: Patient mentioned that she does not want to stay in the hospital. I explained the patient about the plan of care and need for staying in the hospital for further workup. Patient refused to stay appear explained the risks to the patient in leaving against medical advice. Which not only include worsening current situation and may even lead to . Patient verbalized that she understood the reason she wants to leave AMA. Patient strongly recommended to follow the PCP in couple days. Patient signed the form and left AMA.
== END 2021-03-30 07:00 | disposition left against medical advice (07) ==
PROVIDERS: Emergency Provider Emergency Medicine
DX: E11.649 Type 2 diabetes mellitus with hypoglycemia without coma (principal); R41.89 Other symptoms and signs involving cognitive functions and awareness; E16.0 Drug-induced hypoglycemia without coma; R10.9 Unspecified abdominal pain; R41.82 Altered mental status, unspecified; E11.65 Type 2 diabetes mellitus with hyperglycemia; R51.9 Headache, unspecified; R06.02 Shortness of breath; Z79.4 Long term (current) use of insulin; Z79.899 Other long term (current) drug therapy
CPT/HCPCS: 36415; 70450; 71045; 74176; 80053; 81001; 82947; 85025; 87086; 87088; 87186; 99284

== ENCOUNTER 2021-04-19 19:33 | Emergency (ER) | payer OTHER, SELFPAY ==
[2021-04-19 19:41] VITALS: BP 92/39; PULSE 73; RESP 18; TEMP 35.6; O2SAT 95; BMI 22.6
--- NOTE | 2021-04-19 19:48 | ED.GENADULT ---
HPI - General Adult General Chief complaint: Recheck/Abnormal Lab/Rx Stated complaint: low blood sugar Time Seen by Provider: 04/19/21 19:43 Source: patient and EMS Limitations: altered mental status History of Present Illness HPI narrative: This is a 46-year-old female with history of insulin-dependent diabetes mellitus, who was found have a low blood sugar and altered mental status at home. Her blood sugar was in the mid 30s. The patient was given 12.5 g of dextrose by EMS and became more awake however the IV did infiltrate. The patient appears confused and states that she did take her insulin earlier today, cannot say how much, cannot say whether she ate today, believes she did eat but cannot say what she ate. She does complain of right-sided abdominal pain that she has had for some time. She notes a history of left-sided renal cancer. She denies any nausea vomiting, fever. She does feel cold currently. Patient later, after she has been given dextrose, states that she did not eat today but did take insulin. She says she has had right-sided abdominal pain that is worse in the last week and that she has been in a position. She states she is hungry but she does not eat because of nausea and the abdominal pain. She states she did have similar pain when she was admitted to the hospital in March but it was on the left side. She denies any prior history of cholecystectomy or appendectomy, has had hysterectomy. Related Data Home Medications Medication Instructions Recorded Confirmed blood-glucose meter #1 ea 10/10/20 insulin glargine 100 unit/mL (3 26 unit SUBCUT DAILY 10/10/20 03/29/21 mL) subcutaneous pen insulin syringe-needle U-100 0.5 #10 10/10/20 mL 31 gauge x 11/26 ondansetron HCl 4 mg tablet 4 mg PO Q8H PRN 10/10/20 03/29/21 pen needle, diabetic 32 gauge x #50 10/10/20 estradiol 0.05 mg/24 hr semiweekly 1 patch TOPICAL SUWE 03/29/21 03/29/21 transdermal patch gabapentin 300 mg capsule 1 cap PO BID 03/29/21 03/29/21 insulin lispro 100 unit/mL See Rx Instructions .ROUTE .COMPLEX 03/29/21 03/29/21 subcutaneous solution (Admelog U-100 Insulin lispro) Previous Rx's Medication Instructions Recorded leg brace (Knee Support Brace) #1 ea 06/21/20 nitrofurantoin 100 mg PO BID 5 Days #10 cap 04/07/21 monohydrate/macrocrystals 100 mg capsule (Macrobid) Allergies Allergy/AdvReac Type Severity Reaction Status Date / Time morphine [MORPHINE] Allergy Unknown RASH Verified 04/21/20 13:13 LOBSTER Allergy Unknown HIVES Uncoded 03/30/20 17:17 Review of Systems Review of Systems: Yes all other systems are reviewed and are negative [facility] Past Medical History Medical History Diabetes mellitus HTN (hypertension) Malignant neoplasm of left kidney 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 Her blood sugar was normal prior to discharge. The patient complained of abdominal pain that she has had for several weeks, had a previously on admission to the hospital. Review of records reveal she did have a CT scan read and pelvis that was negative at that time. The patient's pain is more right-sided now and I did offer to do a CT of the abdomen and pelvis again, in fact had ordered it but the patient refused. Patient's CBC and chemistry panel are unremarkable except for mild anemia. The patient is advised to follow up with her primary care physician. The patient came in by ambulance and was seen immediately however she appears somewhat impatient to leave. The patient was hydrated with normal saline 1 L IV for borderline hypotension, did have improvement in her blood pressure. Repeat blood sugar after a meal was normal. Critical care time for this life-threatening illness exclusive of all other billable procedures was approximately 20 minutes Lab Data Lab results reviewed: Yes I reviewed the patient's lab results. Result diagrams: 04/19/21 20:31 04/19/21 20:31 Labs: Lab Results 04/19/21 04/19/21 04/19/21 Range/Units 19:41 20:31 20:31 WBC 7.4 (4.8-10.8) X10*3/uL RBC 3.35 L (4.20-5.50) X10*6/uL Hgb 11.7 L (12.0-16.0) g/dl Hct 34.6 L (37-47) % MCV 103.3 H (80-98) fL MCH 34.9 H (27.0-33.0) pg MCHC 33.8 (31.0-35.0) g/dl RDW 12.4 (11.0-16.0) % Plt Count 258 (160-400) X10*3/uL MPV 10.4 (9.4-12.3) fL Immature Gran % (Auto) 0.1 (0.0-0.4) % Neut % (Auto) 51.9 (45-73) % Lymph % (Auto) 34.7 (20-40) % [place] % (Auto) 7.5 (2-11) % Eos % (Auto) 5.0 H (0-4) % Baso % (Auto) 0.8 (0-2) % Lymph # (Auto) 2.6 (1.2-4.9) X10*3/uL [place] # (Auto) 0.6 (0.1-1.2) X10*3/uL Eos # (Auto) 0.4 (0.0-0.4) X10*3/uL Baso # (Auto) 0.1 (0.0-0.2) X10*3/uL Abs Immat Gran (auto) 0.01 (0.00-0.03) X10*3/uL Absolute Neuts (auto) 3.9 (2.0-8.3) X10*3/uL Absolute Nucleated RBC 0.000 (0.0-0.012) X10*3/uL Nucleated RBC % (auto) 0.0 (0.0-0.2) /100WBC Sodium 146 H (135-145) mmol/L Potassium 3.8 (3.3-5.1) mmol/L Chloride 113 H (96-108) mmol/L Carbon Dioxide 23 (22-29) mmol/L Anion Gap 14 (12-20) BUN 8 L (9-16) mg/dL Creatinine 0.78 (0.5-1.4) mg/dL Estim Creat Clear Calc 82.5 Estimated GFR > 60 POC Glucose 25 L* (60-115) mg/dL Random Glucose 98 (60-115) mg/dL Calcium 9.0 D (8.4-10.2) mg/dL Total Bilirubin 0.2 (0.0-1.0) mg/dL AST 14 D (5-31) U/L ALT 12 (0-31) U/L Alkaline Phosphatase 147 H D (39-117) U/L Total Protein 5.8 L D (6.5-8.0) g/dL Albumin 3.5 D (3.5-5.0) g/dL 04/19/21 04/19/21 Range/Units 20:35 21:49 WBC (4.8-10.8) X10*3/uL RBC (4.20-5.50) X10*6/uL Hgb (12.0-16.0) g/dl Hct (37-47) % MCV (80-98) fL MCH (27.0-33.0) pg MCHC (31.0-35.0) g/dl RDW (11.0-16.0) % Plt Count (160-400) X10*3/uL MPV (9.4-12.3) fL Immature Gran % (Auto) (0.0-0.4) % Neut % (Auto) (45-73) % Lymph % (Auto) (20-40) % [place] % (Auto) (2-11) % Eos % (Auto) (0-4) % Baso % (Auto) (0-2) % Lymph # (Auto) (1.2-4.9) X10*3/uL [place] # (Auto) (0.1-1.2) X10*3/uL Eos # (Auto) (0.0-0.4) X10*3/uL Baso # (Auto) (0.0-0.2) X10*3/uL Abs Immat Gran (auto) (0.00-0.03) X10*3/uL Absolute Neuts (auto) (2.0-8.3) X10*3/uL Absolute Nucleated RBC (0.0-0.012) X10*3/uL Nucleated RBC % (auto) (0.0-0.2) /100WBC Sodium (135-145) mmol/L Potassium (3.3-5.1) mmol/L Chloride (96-108) mmol/L Carbon Dioxide (22-29) mmol/L Anion Gap (12-20) BUN (9-16) mg/dL Creatinine (0.5-1.4) mg/dL Estim Creat Clear Calc Estimated GFR POC Glucose 88 105 (60-115) mg/dL Random Glucose (60-115) mg/dL Calcium (8.4-10.2) mg/dL Total Bilirubin (0.0-1.0) mg/dL AST (5-31) U/L ALT (0-31) U/L Alkaline Phosphatase (39-117) U/L Total Protein (6.5-8.0) g/dL Albumin (3.5-5.0) g/dL Discharge Plan Discharge Clinical Impression: Hypoglycemia due to insulin, Chronic abdominal pain Patient Disposition: Home, Self-Care Instructions: Hypoglycemia in a Person with Diabetes (ED), Abdominal Pain (ED) Additional Instructions: Make sure to eat regular snacks. Decrease your insulin dose by 1/2 if you are not eating a regular diet. We offered to do a CT of her abdomen and pelvis tonight to further evaluate your abdominal pain, which you chose not to have. Follow-up with her primary care physician, or return if you wish to pursue further evaluation of your abdominal pain. Given that your pain is been present for days to weeks, it it is not likely anything emergent like acute appendicitis, however we cannot fully evaluated without performing imaging. Prescriptions: No Action (DME) Knee Support Brace Misc See Rx Instructions .MEDSUPPLY Qty: 1 RF: 0 estradiol 0.05 mg/24 hr patch semiweekly 1 patch topical SUWE RF: 0 gabapentin 300 mg capsule 1 cap PO BID RF: 0 insulin lispro [Admelog U-100 Insulin lispro] 100 unit/mL solution See Rx Instructions .ROUTE .COMPLEX RF: 0 nitrofurantoin monohyd/m-cryst [Macrobid] 100 mg capsule 100 mg PO BID 5 Days Qty: 10 RF: 0 Interventions: ED Discharge Assessment Last Done: 04/19/21 21:57 Discharge Date/Time: 04/19/21 21:58
[2021-04-19 19:50] VITALS: BP 149/70; PULSE 70; O2SAT 100
--- NOTE | 2021-04-19 20:00 | PC.NURSE ---
pt given regular gingerale and crackers. pt is awake alert and is milind to swallow with no difficulty.
[2021-04-19] MEDS: fentaNYL citrate/PF 100 MCG/2 ML VIAL 50 MCG IVPUSH (20:37)
[2021-04-19] MEDS: ondansetron HCL 4 MG/2 ML VIAL IVPUSH (20:37)
[2021-04-19 20:38] LABS: MANUAL DIFF FLAG NO
[2021-04-19] MEDS: 0.9 % Sodium Chloride 1,000 ML 999 ML IV (20:38)
[2021-04-19 20:40] LABS: Basophils Absolute Auto 0.1 X10*3/uL (0.0-0.2); Basophils Percent Auto 0.8 % (0-2); Eosinophils Absolute Auto 0.4 X10*3/uL (0.0-0.4); Hematocrit 34.6 % (37-47); Hemoglobin 11.7 g/dl (12.0-16.0); Imm Gran Abs Auto 0.01 X10*3/uL (0.00-0.03); Imm Gran Pct Auto 0.1 % (0.0-0.4); Lymphocytes Absolute Auto 2.6 X10*3/uL (1.2-4.9); Lymphocytes Percent Auto 34.7 % (20-40); Mean Corpuscular HGB Conc 33.8 g/dl (31.0-35.0); Mean Corpuscular Hemoglobin 34.9 pg (27.0-33.0); Mean Corpuscular Volume 103.3 fL (80-98); Mean Platelet Volume 10.4 fL (9.4-12.3); Monocytes Absolute Auto 0.6 X10*3/uL (0.1-1.2); Monocytes Percent Auto 7.5 % (2-11); Neutrophils Absolute Auto 3.9 X10*3/uL (2.0-8.3); Neutrophils Percent Auto 51.9 % (45-73); Platelet Count 258 X10*3/uL (160-400); Red Blood Count 3.35 X10*6/uL (4.20-5.50); Red Cell Distribution Width 12.4 % (11.0-16.0); White Blood Count 7.4 X10*3/uL (4.8-10.8)
[2021-04-19 20:59] LABS: Alanine Aminotransferase 12 U/L (0-31); Albumin Level 3.5 g/dL (3.5-5.0); Alkaline Phosphatase 147 U/L (39-117); Anion Gap 14 (12-20); Aspartate Amino Transferase 14 U/L (5-31); Bilirubin Total 0.2 mg/dL (0.0-1.0); Blood Urea Nitrogen 8 mg/dL (9-16); Carbon Dioxide 23 mmol/L (22-29); Chloride 113 mmol/L (96-108); Creatinine Clr Calc Pharmacy 82.5; Estimated Glomerular Filt Rate > 60; Glucose Random 98 mg/dL (60-115); Potassium 3.8 mmol/L (3.3-5.1); Sodium 146 mmol/L (135-145); Total Protein 5.8 g/dL (6.5-8.0)
[2021-04-19 21:50] VITALS: BP 106/53; PULSE 67; RESP 16; O2SAT 98
[2021-04-19 22:04] LABS: Glucose, Whole Blood 88 mg/dL (60-115)
[2021-04-19 22:04] LABS: Glucose, Whole Blood 25 mg/dL (60-115)
[2021-04-19 22:04] LABS: Glucose, Whole Blood 105 mg/dL (60-115)
== END 2021-04-19 21:58 | disposition home or self-care (01) ==
PROVIDERS: Emergency Provider Emergency Medicine
DX: E11.649 Type 2 diabetes mellitus with hypoglycemia without coma (principal); T38.3X5A Adverse effect of insulin and oral hypoglycemic [antidiabetic] drugs, initial encounter; Y92.9 Unspecified place or not applicable; G89.29 Other chronic pain; R10.9 Unspecified abdominal pain; I10 Essential (primary) hypertension
CPT/HCPCS: 36415; 80053; 82947; 85025; 96361; 96374; 96375; 99284; J2405; J3010

== ENCOUNTER 2021-04-26 08:20 | Outpatient (REF) | payer OTHER, SELFPAY ==
--- NOTE | ~2021-04-26 | CT_ITS ---
EXAMINATION: CT ABDOMEN WITHOUT AND WITH CONTRAST CLINICAL INFORMATION: Renal mass COMPARISON: Previous CT scans most recent 03/29/2021 TECHNIQUE: Contiguous axial thin section helical images of the abdomen were performed before and after the administration of oral contrast and 85 mL of Omnipaque 350 intravenous contrast. The data set was reformatted in the coronal and sagittal planes and reviewed on an independent workstation. This CT examination was performed using dose optimization techniques as appropriate, variously including the following: *Automated exposure control *Adjustment of mA and/or kV according to patient size (this includes techniques or standardized protocols for targeted exams where dose is matched to indication/reason for exam; i.e. extremities or head) *Use of iterative reconstruction technique DLP: 455 mGy-cm FINDINGS: LUNG BASES: There is a 2 mm peripheral or subpleural left lower lobe nodule axial image 21 series 4. This is stable from prior exams. The lung bases are otherwise clear. LIVER, GALLBLADDER, AND BILIARY TREE: There is a small 5 mm low-attenuation lesion in the inferior aspect of the posterior segment of the right lobe the liver that is stable, for example axial image 107 series 4. This is difficult to characterize due to small size but is stable going back to oldest available CT scan from 2015 and therefore probably benign. No other focal liver lesion is seen. The gallbladder is unremarkable. PANCREAS: Unremarkable SPLEEN: Unremarkable ADRENAL GLANDS AND KIDNEYS: There is a 1.8 x 2 x 1.8 cm enhancing lesion in the anterior upper pole of the left kidney by my measurements, this measured 1.5 x 2.1 x 1.6 cm in dimension on February 2021 exam and is slightly increased in size. Hounsfield units precontrast measure 20. Hounsfield units postcontrast measure 89. There is a small subcentimeter cyst in the lower pole of the right kidney. The kidneys are otherwise unremarkable. The adrenal glands are unremarkable. BOWEL LOOPS: Unremarkable LYMPH NODES: There is no adenopathy. VASCULAR: There is evidence of atherosclerotic disease. No aneurysm is seen. BONES: There is curvature of the lower thoracic and upper lumbar spine to the right. There are mild degenerative changes of the spine. CT/CT abdomen wo/w con IMPRESSION: Enhancing solid lesion in the upper pole of the left kidney. This is a slightly increased in size compared to prior exams. Appearance is suggestive of residual neoplasm. Stable small 5 mm low-attenuation lesion in the liver. Stable small right renal cyst. Small stable left lower lobe 2 mm pulmonary nodule.
[2021-04-26] MEDS: iohexoL 350 MG/ML 100 ML INFUS..BTL 85 ML IV (10:04)
== END 2021-04-26 08:21 | disposition home or self-care (01) ==
LOC: HO.CT 08:20
PROVIDERS: Visit Provider Urology
DX: C64.2 Malignant neoplasm of left kidney, except renal pelvis (principal)
CPT/HCPCS: 74170; Q9967

== ENCOUNTER → 2021-05-11 14:38 | Outpatient (BNVA) | payer OTHER, SELFPAY | PROVIDERS: PCP Internal Medicine; Visit Provider Urology ==

== ENCOUNTER → 2022-08-19 08:43 | Outpatient (BNVA) | payer OTHER, SELFPAY | PROVIDERS: PCP Internal Medicine; Visit Provider Physician Assistant | DX: S93.401A Sprain of unspecified ligament of right ankle, initial encounter (principal) | CPT/HCPCS: 99202 ==

== ENCOUNTER 2022-09-12 07:12 | Emergency (ER) | payer OTHER, SELFPAY ==
--- NOTE | ~2022-09-12 | XR_ITS ---
EXAMINATION: 1. RADIOGRAPHS LEFT SHOULDER 2. RADIOGRAPHS LEFT HUMERUS 3. RADIOGRAPHS LEFT FOREARM CLINICAL INFORMATION: Fall. Pain. Unable to move arm. COMPARISON: Left shoulder x-rays 10/18/2020 TECHNIQUE: 3 views of the left shoulder, 2 views of the left humerus and 2 views of the left forearm were obtained. FINDINGS: Comminuted minimally impacted fracture of the left humeral head/neck. Humeral head appears to demonstrate good articulation with the glenoid fossa. Acromioclavicular joint is unremarkable. The left elbow is grossly unremarkable. No fracture of the left radius or ulna. Visualized left-sided ribs and lung parenchyma are unremarkable. XR/XR humerus LT IMPRESSION: Comminuted minimally impacted fracture of the left humeral head/neck.
--- NOTE | ~2022-09-12 | XR_ITS ---
EXAMINATION: 1. RADIOGRAPHS LEFT SHOULDER 2. RADIOGRAPHS LEFT HUMERUS 3. RADIOGRAPHS LEFT FOREARM CLINICAL INFORMATION: Fall. Pain. Unable to move arm. COMPARISON: Left shoulder x-rays 10/18/2020 TECHNIQUE: 3 views of the left shoulder, 2 views of the left humerus and 2 views of the left forearm were obtained. FINDINGS: Comminuted minimally impacted fracture of the left humeral head/neck. Humeral head appears to demonstrate good articulation with the glenoid fossa. Acromioclavicular joint is unremarkable. The left elbow is grossly unremarkable. No fracture of the left radius or ulna. Visualized left-sided ribs and lung parenchyma are unremarkable. XR/XR shoulder LT min 2V IMPRESSION: Comminuted minimally impacted fracture of the left humeral head/neck.
--- NOTE | ~2022-09-12 | XR_ITS ---
EXAMINATION: 1. RADIOGRAPHS LEFT SHOULDER 2. RADIOGRAPHS LEFT HUMERUS 3. RADIOGRAPHS LEFT FOREARM CLINICAL INFORMATION: Fall. Pain. Unable to move arm. COMPARISON: Left shoulder x-rays 10/18/2020 TECHNIQUE: 3 views of the left shoulder, 2 views of the left humerus and 2 views of the left forearm were obtained. FINDINGS: Comminuted minimally impacted fracture of the left humeral head/neck. Humeral head appears to demonstrate good articulation with the glenoid fossa. Acromioclavicular joint is unremarkable. The left elbow is grossly unremarkable. No fracture of the left radius or ulna. Visualized left-sided ribs and lung parenchyma are unremarkable. XR/XR forearm LT 2V IMPRESSION: Comminuted minimally impacted fracture of the left humeral head/neck.
[2022-09-12 07:38] VITALS: BP 116/43; PULSE 96; RESP 18; TEMP 36.5; O2SAT 97; BMI 25.0
--- NOTE | 2022-09-12 09:41 | ED_ITS ---
HPI - Extremity Problem General Chief complaint: Extremity Injury, Upper Stated complaint: fall/injured L arm Time Seen by Provider: 09/12/22 09:29 Source: patient Mode of arrival: wheelchair Limitations: no limitations History of Present Illness HPI Narrative: 47-year-old female with a history of diabetes presents to the ER for evaluation of a left shoulder injury that occurred 18 days ago. Patient reports at the time she had a blood glucose of 19. She stood up to go to the kitchen to get juice when she ended up falling onto her left side, injuring her shoulder and face. Her boyfriend was home at the time but was unable to catch her. She stayed at home and was waiting for injuries to get better. Her face improved however she has ongoing pain in her left arm. She reports significant bruising to the left upper arm. She has been taking Motrin and Tylenol without any improvement in the pain. Pain is worse with movement and getting dressed. MD Complaint: extremity pain Onset (ago): day(s) (18) Pain Consistency: constant Location: left and upper extremity Severity scale (1-10): 10 Quality: aching Radiation: distal Relieving factors: immobilization Exacerbating factors: range of motion, weight bearing and palpation Associated symptoms: denies other symptoms Related Data Home Medications Medication Instructions Recorded Confirmed blood-glucose meter #1 ea 10/10/20 insulin glargine 100 unit/mL (3 26 unit subcut DAILY 10/10/20 03/29/21 mL) subcutaneous pen insulin syringe-needle U-100 0.5 #10 ea 10/10/20 mL 31 gauge x 11/26 ondansetron HCl 4 mg tablet 4 mg PO Q8H PRN Nausea And Vomiting 10/10/20 03/29/21 pen needle, diabetic 32 gauge x #50 ea 10/10/20 estradiol 0.05 mg/24 hr semiweekly 1 patch topical SUWE 03/29/21 03/29/21 transdermal patch gabapentin 300 mg capsule 1 cap PO BID 03/29/21 03/29/21 insulin lispro 100 unit/mL See Rx Instructions .Route .COMPLEX 03/29/21 03/29/21 subcutaneous solution (Admelog U-100 Insulin lispro) albuterol sulfate 90 mcg/actuation 2 puff inhalation Q4H PRN wheezing 08/19/22 aerosol inhaler (Ventolin HFA) calcium carbonate 500 mg-vitamin 2 tab PO QAM 08/19/22 D3 10 mcg (400 unit) tablet (Oyster Shell Calcium-Vitamin D3) cetirizine 10 mg tablet 10 mg PO DAILY 08/19/22 fluoxetine 40 mg capsule 40 mg PO QPM 08/19/22 hydroxyzine pamoate 50 mg capsule 50 mg PO TID PRN anxiety 08/19/22 quetiapine 100 mg tablet 100 - 200 mg PO BEDTIME 08/19/22 simvastatin 40 mg tablet 40 mg PO DAILY 08/19/22 Previous Rx's Medication Instructions Recorded leg brace (Knee Support Brace) #1 ea 06/21/20 nitrofurantoin 100 mg PO BID 5 days #10 caps 04/07/21 monohydrate/macrocrystals 100 mg capsule (Macrobid) tramadol 50 mg tablet 50 mg PO Q8H PRN pain #15 tabs 05/21/21 ibuprofen 600 mg tablet 600 mg PO Q8H PRN pain #30 tabs 09/12/22 oxycodone 5 mg tablet 5 mg PO Q8H PRN severe pain (scale 09/12/22 score 7-10) #10 tabs Allergies Allergy/AdvReac Type Severity Reaction Status Date / Time morphine [MORPHINE] Allergy Unknown RASH Verified 08/19/22 08:53 LOBSTER Allergy Unknown HIVES Uncoded 08/19/22 08:53 Review of Systems Review of Systems: Yes all other systems are reviewed and are negative PMFSH Past Medical History Medical History Diabetes mellitus HTN (hypertension) Malignant neoplasm of left kidney 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 Surgical History History of hysterectomy History of kidney surgery Social History Social History (Updated 08/19/22 @ 08:55 by HOWARD Larson) Alcohol intake: never Smoked in Last 30 Days: Yes Use of substances other than those prescribed or required for medical reasons: No Advance Directives: No Patient : No Current occupational status: disabled Current occupation: rt hand Physical Exam Vital Signs: Vital Signs: Last Vital Signs Temp 97.7 F 09/12/22 07:38 Pulse 96 09/12/22 07:38 Resp 18 09/12/22 07:38 BP 116/43 L 09/12/22 07:38 Pulse Ox 97 09/12/22 07:38 O2 Del Method 09/12/22 07:38 BMI result Body Mass Index 25.0 Appearance: Alert. Oriented X3. No acute distress. HEENT: normal inspection CVS: Normal heart rate and rhythm. Pulses normal. Respiratory: No respiratory distress. Skin: Skin warm and dry. Normal skin color. Normal skin turgor. No rashes. Extremities: left upper arm with diffuse ecchymosis, tenderness of the proximal humerus with significant limitation in ROM of the left shoulder, left elbow. mild swelling of the left hand digits. weaker hand grasp. 2+ radial pulse. sensation normal Neuro: Oriented X 3. grossly normal, nonfocal Course Course Course Narrative: 47-year-old female presents to the ER for evaluation of left arm pain status post fall 18 days ago. X-ray revealing comminuted minimally impacted fracture of the left humeral head and neck. No other fractures identified of the left forearm. Patient was placed in a sling and counseled on diagnosis and management. She artery follows with orthopedics across the street. Will discharge with a short course of narcotic pain medication. She will follow-up with ortho. Stable for discharge home. Medical Decision Making Medical Decision Making MDM Narrative: 47-year-old female presenting to the ER with left shoulder pain status post fall 18 days ago. No episodes of recurrent hypoglycemia per patient her exam shows diffuse ecchymosis but compartments are soft and compressible and, neurovascularly intact distally. X-ray showing fracture of the left humeral head/neck. Placed in a sling and counseled on management. Stable for discharge Differential Diagnosis Differential Diagnoses: The differential diagnosis associated with the presentation includes Contusion, humerus fracture, clavicular fracture, elbow fracture, forearm fracture, no evidence of compartment syndrome or nerve impingement Independent Interpretation I performed an independent interpretation of an: Plain X-Ray Interpretation: Agree with radiologist, proximal humerus head/neck fracture appreciated. Radiology Impression Discussion of test interpretation with radiology: I have reviewed the radiologist's reading. Radiologist Impression: XR/XR shoulder LT min 2V IMPRESSION: Comminuted minimally impacted fracture of the left humeral head/neck. External Record Review External record reviewed: Outpatient record and Prior outpatient labs Prescription Management I considered prescription management with: Pain Medication Chronic Conditions Patient?s care impacted by: Diabetes Critical Care Time Critical Care Time Critical Care Time: No Discharge Plan Discharge Clinical Impression: Closed left humeral fracture Patient Disposition: Home, Self-Care Instructions: Arm Fracture in Adults (ED), Shoulder Immobilizer (ED) Additional Instructions: Your x-ray today showed a comminuted, minimally impacted fracture of the left humeral head/neck. Where the provided sling at all times unless bathing and changing. Follow-up with orthopedics, name and number below. Call for an appointment. Take the prescribed narcotic pain medication as needed for severe pain only. This can cause constipation, recommend stool softeners or laxatives to take with this. Recommend around the clock Motrin and Tylenol, alternating throughout the day to help with pain control. Ice the area several times per day. If you develop new or worsening symptoms call 911 or come back to the ER for further evaluation. Prescriptions: New oxycodone 5 mg tablet 5 mg PO Q8H PRN (Reason: severe pain (scale score 7-10)) Qty: 10 0RF Rx Instructions: Partial Fill upon patient request. ibuprofen 600 mg tablet 600 mg PO Q8H PRN (Reason: pain) Qty: 30 0RF No Action (DME) Knee Support Brace Misc See Rx Instructions .MEDSUPPLY Qty: 1 0RF Rx Instructions: neoprene knee sleve tramadol 50 mg tablet 50 mg PO Q8H PRN (Reason: pain) Qty: 15 0RF estradiol 0.05 mg/24 hr patch semiweekly 1 patch topical SUWE gabapentin 300 mg capsule 1 cap PO BID Rx Instructions: per patient bid insulin lispro [Admelog U-100 Insulin lispro] 100 unit/mL solution See Rx Instructions .ROUTE .COMPLEX Rx Instructions: per patient: 1-15 units SQ up to 6/day nitrofurantoin monohyd/m-cryst [Macrobid] 100 mg capsule 100 mg PO BID 5 Days Qty: 10 0RF Rx Instructions: must administer with a meal/food Basaglar KwikPen U-100 Insulin 100 unit/mL (3 mL) insulin pen 26 unit subcut DAILY Rx Instructions: was 12 u bid previously (DME) blood-glucose meter Kit See Rx Instructions .ROUTE .MEDSUPPLY Qty: 1 Rx Instructions: As directed (DME) insulin syringe-needle U-100 0.5 mL 31 gauge x 5/16 syringe See Rx Instructions .ROUTE .MEDSUPPLY Qty: 10 Rx Instructions: As directed (DME) pen needle, diabetic 32 gauge x 5/32 needle See Rx Instructions .ROUTE BID Qty: 50 Rx Instructions: As directed ondansetron HCl 4 mg tablet 4 mg PO Q8H PRN (Reason: Nausea And Vomiting) hydroxyzine pamoate 50 mg capsule 50 mg PO TID PRN (Reason: anxiety) quetiapine 100 mg tablet 100 - 200 mg PO BEDTIME calcium carbonate-vitamin D3 [Oyster Shell Calcium-Vit D3] 500 mg-10 mcg (400 unit) tablet 2 tab PO QAM cetirizine 10 mg tablet 10 mg PO DAILY fluoxetine 40 mg capsule 40 mg PO QPM simvastatin 40 mg tablet 40 mg PO DAILY albuterol sulfate [Ventolin HFA] 90 mcg/actuation HFA aerosol inhaler 2 puff inhalation Q4H PRN (Reason: wheezing) Referrals: [facility] [place] Orthopedic Surgeons [Provider Group] (broken humerus)
[2022-09-12] MEDS: oxyCODONE HCl Immed Release 5 MG TABLET PO (09:42)
[2022-09-12] MEDS: Ibuprofen 600 MG TABLET PO (09:43)
[2022-09-12 10:13] VITALS: BP 155/85; PULSE 81; RESP 16; TEMP 36.6; O2SAT 98
== END 2022-09-12 10:15 | disposition home or self-care (01) ==
PROVIDERS: Emergency Provider Student in an Organized Health Care Education/Training Program
DX: S42.302A Unspecified fracture of shaft of humerus, left arm, initial encounter for closed fracture (principal); M25.512 Pain in left shoulder; W01.0XXA Fall on same level from slipping, tripping and stumbling without subsequent striking against object, initial encounter; Y93.9 Activity, unspecified; Y92.9 Unspecified place or not applicable; Y99.9 Unspecified external cause status; Z79.899 Other long term (current) drug therapy
CPT/HCPCS: 73030; 73060; 73090; 99283; 99284

== ENCOUNTER 2022-09-23 10:25 | Outpatient (REF) | payer OTHER, SELFPAY ==
--- NOTE | ~2022-09-23 | XR_ITS ---
EXAMINATION: XR SHOULDER, LEFT CLINICAL INFORMATION: Pain. COMPARISON: Left shoulder 09/12/2022. TECHNIQUE: Two views of the left shoulder. FINDINGS: There is a comminuted minimally impacted fracture left humeral neck. No other fracture seen. No glenohumeral joint abnormality seen. The soft tissues are normal. XR/XR shoulder LT min 2V IMPRESSION: Comminuted minimally impacted fracture left humeral neck.
== END 2022-09-23 10:26 | disposition home or self-care (01) ==
LOC: HO.HOSX 10:25
PROVIDERS: Visit Provider Physician Assistant
DX: S42.202D Unspecified fracture of upper end of left humerus, subsequent encounter for fracture with routine healing (principal); Z79.891 Long term (current) use of opiate analgesic; X58.XXXD Exposure to other specified factors, subsequent encounter
CPT/HCPCS: 73030; 99212

== ENCOUNTER 2022-12-16 11:13 | Outpatient (REF) | payer OTHER, SELFPAY ==
--- NOTE | ~2022-12-16 | XR_ITS ---
EXAMINATION: XR SHOULDER, LEFT CLINICAL INFORMATION: Pain in left shoulder COMPARISON: 09/23/2022 TECHNIQUE: Grashey, scapular Y axillary view of the left shoulder. FINDINGS: There is no significant interval change in appearance of impacted, comminuted fracture of the left humeral neck. The chronic clavicular joint and glenohumeral joints are preserved. Soft tissues are unremarkable. XR/XR shoulder LT min 2V IMPRESSION: No interval change in appearance of mildly comminuted and impacted fracture of the left humeral neck
== END 2022-12-16 11:14 | disposition home or self-care (01) ==
LOC: HO.HOSX 11:13
PROVIDERS: Visit Provider Physician Assistant
DX: S42.202D Unspecified fracture of upper end of left humerus, subsequent encounter for fracture with routine healing (principal)
CPT/HCPCS: 73030; 99212

== ENCOUNTER 2022-12-30 14:26 | Emergency (ER) | payer OTHER, SELFPAY | END 2022-12-30 14:57 | disposition left against medical advice (07) | LOC: HO.ED 14:58 | PROVIDERS: Emergency Provider Emergency Medicine | DX: M79.602 Pain in left arm (principal) ==

== ENCOUNTER 2023-02-27 09:41 | Outpatient (REF) | payer OTHER, SELFPAY ==
--- NOTE | 2023-02-27 09:44 | EMG_ITS ---
Bilateral median and ulnar motor and sensory studies were performed. Bilateral radial sensory studies were performed, and paraspinal muscles were tested with a needle. IMPRESSION: 1. Mild bilateral median neuropathy across carpal tunnel. 2. Mild bilateral ulnar neuropathy across cubital tunnel. 3. Underlying peripheral neuropathy of axonal type. MD RAYMOND Bautista/TYRONE / [id number]
== END 2023-02-27 09:42 | disposition home or self-care (01) ==
LOC: HO.NEURO 09:41
PROVIDERS: Visit Provider Physician Assistant
DX: R20.0 Anesthesia of skin (principal); R20.2 Paresthesia of skin
CPT/HCPCS: 95860; 95886; 95907; 95913

== ENCOUNTER 2023-04-01 10:10 | Outpatient (AMB) | payer OTHER, SELFPAY ==
--- NOTE | 2023-04-01 10:38 | MHC.OFFVIS ---
Intake Intake Visit Reasons: OV - EMG Review - Per TM Intake Note: Lucinda 48 yr old female presents today for her EMG review . Allergies morphine [MORPHINE] Allergy (Unknown, Verified 04/01/23 11:05) RASH LOBSTER Allergy (Unknown, Uncoded 04/01/23 11:05) HIVES HPI OV - EMG Review - Per TM HPI Details The patient is a 48-year-old [id number] woman who most recently was treated for a left proximal humerus fracture which was treated non operatively. Date of injury was 08/26/2022. The patient complains of numbness in her left hand that she says is constant but worse at night. She also complains of inability to use her left hand since her left shoulder fracture. She says it hurts her to make a fist and she can only use it as a poor helper hand when she does dishes and other activities. She recently had an EMG nerve conduction study. [facility] Medical History Diabetes mellitus HTN (hypertension) Malignant neoplasm of left kidney 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 Surgical History History of hysterectomy History of kidney surgery Social History Alcohol intake: never Current occupational status: disabled Current occupation: rt hand Physical Exam Const General: cooperative, healthy appearing and no acute distress Orientation/consciousness: oriented to person and oriented to place HEENT Head: Yes normocephalic and Yes atraumatic Eyes EOM: EOMs intact bilaterally Resp Effort & Inspection: normal respiratory effort and able to speak in complete sentences Cardio Jugular venous distension: no JVD Skin General skin exam: turgor normal Rashes: no rashes Neuro General: oriented to person and oriented to place Extrem Other: Evaluation of left Upper Extremity: Neuro: Median, ulnar, radial nerves motor and sensory intact except for dense numbness in the median nerve distribution. No thenar or intrinsic wasting. Good finger cross Vascular: Cap refill brisk. ROM: Initially she said that she could not make a fist. When I asked her to make a fist she would flex a little at her PIP and D IP joints. She says she was unable to use her left hand, and went on to describe how when she does dishes she has to put a plate on it and then use the right hand to turn the plate over and manipulate objects when she washes them. With encouragement, she was able to bring all of her fingers closed to a fist. She actually does not have a joint stiffness or extrinsic or intrinsic tightness. She became tearful when I had her working on range of motion. Again there was no stiffness and no swelling. We went over exercises today in clinic and before leaving clinic she was able to actively bring her fingers close to a fist with the ease. She also has good active range of motion of the thumb with encouragement. Smooth wrist range of motion. She appears to have good elbow range of motion. She demonstrated that she can only forward flex her shoulder to perhaps 90 degrees. Again she status post proximal humerus fracture in August 2022. Skin: No lacerations or abrasions. General: No eccymosis. No erythema or evidence of infection. EMG nerve conduction study: Impression:: 1. Mild bilateral median neuropathy across carpal tunnel 2. Mild bilateral ulnar neuropathy across cubital tunnel 3. Underlying peripheral neuropathy of axonal type Dr. Mock 02/27/2023 Please see his report for additional information as necessary: Psych Appearance: grossly normal Affect: normal affect Attitude: cooperative Assessment & Plan Assessment & Plan (1) Carpal tunnel syndrome of left wrist: Code(s): G56.02 - Carpal tunnel syndrome, left upper limb Plan Assessment and plan: 1. Left hand dysfunction without actual stiffness. She says this has been in place since her left proximal humerus fracture. She was initially resistant to attend OT hand therapy because she says that she cannot drive there multiple times per week and cannot afford take an Uber 2. Left carpal tunnel syndrome, mild She claimed she has dense numbness all the time. However, she claims that her her worst symptoms are at night, particularly painful symptoms. We did provide her with a Velcro wrist splint for nighttime use only. 3. Left cubital tunnel syndrome, mild She had normal sensation to the small finger today in clinic. Good finger cross. Appears to be asymptomatic at this time 4. Right carpal tunnel syndrome, mild 5. Right cubital tunnel syndrome, mild No complaints of right hand numbness at this time. I educated her about these conditions. We did discuss operative and non operative treatment options. I do think that she may benefit from a left carpal tunnel release. However, I am concerned about her apprehension around left hand use, and of left hand dysfunction per patient since her left proximal humerus fracture. After a long discussion she has agreed to try a left OT hand therapy. We would like for her to try to normalize her left hand function. She will follow-up in 4-6 weeks. Once her left hand function is normalized, then I think it will be appropriate to proceed with a left carpal tunnel release and we can discuss it at that time. I am ordering OT hand therapy to help her normalize her left hand function and use with normal activities. We will see her in 4-6 weeks to see how she is doing. Please note that more than 30 minutes was spent with this patient gathering the history, performing the exam, formulating a treatment plan and discussing this with the patient at length, and documenting the visit. Orders: Orders OT Evaluation and Treatment Today G56.02 - Carpal tunnel syndrome, left upper limb Coding Level of Care Code Est Pt Level 4 (56512) Diagnoses Carpal tunnel syndrome of left wrist G56.02
== END 2023-04-01 11:13 | disposition home or self-care (01) ==
PROVIDERS: Visit Provider Orthopaedic Surgery
DX: G56.02 Carpal tunnel syndrome, left upper limb (principal)
CPT/HCPCS: 99214

== ENCOUNTER → 2023-04-01 10:10 | Outpatient (BNVA) | payer OTHER, SELFPAY | PROVIDERS: Visit Provider Orthopaedic Surgery | DX: G56.02 Carpal tunnel syndrome, left upper limb (principal) | CPT/HCPCS: 99212 ==

== ENCOUNTER 2023-05-13 08:30 | Outpatient (RCR) | payer OTHER, SELFPAY ==
--- NOTE | 2023-04-29 11:00 | MHC.OT.EP ---
[address] [phone] Occupational Therapy Plan of Care Patient Name: Lucinda Mann Date of Evaluation: 04/29/23 Diagnosis: L carpal tunnel syndrome Pain Location: L hand and wrist 2/10 currently Best: 2/10 Best: 8/10 Pain Score: 2 Aggravating Factors: Grasping, lifting. Pt has been avoiding L UE use since humeral fracture in Aug. Alleviating Factors: Tylenol Assessment: Pt is a 48 y/o female s/p L humerus fracture in August this year. Presents with decreased hand function likely from non-use, also with mild carpal tunnel syndrome L hand. She saw Dr. Marcos last month who suggested CTR, although pt needing to improve L hand function and pain prior to scheduling surgery. She reports improvement with digit ROM, although pain and numbness persist. Gross grasp is low bilaterally, 20# on the R and 8# on the left. We spent some time reviewing ROM exercises for her shoulder as well. Barriers include L UE pain limiting function, decreased generalized UE strength with L>R, and decreased coordination in L hand. Lucinda would benefit from skilled OT to address noted barriers and assist in return to PLOF. Frequency and Duration: The patient will be seen 2x/wk for 4 weeks Short Term Goals: Decrease L shoulder and hand pain <3/10 with activity IND with thermal modalities for pain management IND with orthosis wear and HEP Improve L hand function to be able to wash and put away dishes [employer] Assurance Analyst Goals: Pain free with BADL's/IADL's Improve L shoulder ROM to WFL's IND with progression of HEP Improve L gross grasp >20# Quick DASH <25% Treatment Plan: Therapeutic Exercise Therapeutic Activity Home Exercise Program Patient Education Ultrasound Fluidotherapy MHP Cold Packs Joint Mobilization Soft Tissue Mobilization Electronically Signed By: Deneen Caputo MS OTR/L Please Sign and return to therapist. Thank you once again for your referral.
== END 2023-05-28 13:25 | disposition home or self-care (01) ==
LOC: HO.OT 08:30
PROVIDERS: Visit Provider Orthopaedic Surgery
DX: G56.02 Carpal tunnel syndrome, left upper limb (principal)
CPT/HCPCS: 97035; 97110; 97165

== ENCOUNTER 2023-05-13 08:54 | Outpatient (AMB) | payer OTHER, SELFPAY ==
--- NOTE | 2023-05-13 09:02 | A.OFFVIS_ITS ---
Intake Vital Signs 05/13/23 09:14 Height 5 ft 5 in Weight 150 lb BMI 25.0 Intake Visit Reasons: ov- L CTS ROM Intake Note: Lucinda 48 yr old female who is right hand dominant, presents today for her left hand & wrist ROM check. States she has been working with O.T to improve stiffness and is doing better. Patient states she cont to have CTS and would like to discuss surery. HX of left proximal humerus fracture, DOI: 08/26/22, Allergies morphine [MORPHINE] Allergy (Unknown, Verified 05/13/23 09:14) RASH LOBSTER Allergy (Unknown, Uncoded 05/13/23 09:14) HIVES HPI ov- L CTS ROM HPI Details Lucinda is a 48 year old right hand dominant woman who presents for a left hand & wrist ROM check. She was treated non-operatively for a left proximal humerus fracture, DOI: 08/26/22, and was not able to use her left hand beyond basic functions since she recovered from her injury. She says she is doing better in regards to her motion. She has been attending OT and working on ROM at home, which has been helpful. She continues to have some difficulty with holding objects such as a plate. Her small finger is very weak with gripping She continues to have numbness in the left median nerve distribution, symptoms intermittent, but daily, and worse at night. She says all her fingers are always numb at night, this includes the small finger She does have intermittent numbness in her right had, but this is less bothersome for her compared to her left hand. She is a Diabetic but says this is well-controlled. [facility] Medical History Diabetes mellitus HTN (hypertension) Malignant neoplasm of left kidney 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 Surgical History History of hysterectomy History of kidney surgery Social History Alcohol intake: never Current occupational status: disabled Current occupation: rt hand Review of Systems Const All systems reviewed & are unremarkable except as noted in HPI and below Physical Exam Vital Signs: BMI result Body Mass Index 25.0 Const General: no acute distress and alert Orientation/consciousness: patient oriented x3 Neuro General: patient oriented x3 Extrem Other: Evaluation of Left Upper Extremity: The patient is alert, oriented, and in no acute distress Neuro: Median, Ulnar, Radial nerves motor grossly intact except for decreased sensation in the median nerve distribution. Normal sensation in the small finger today. No thenar or intrinsic wasting Good APB muscle belly firing and good finger cross Weakness in left small finger adduction + Froment's sign bilaterally Vascular: Cap refill brisk ROM: She can make a tight fist with good strength, and back into full extension She also has good active range of motion of the thumb as well Smooth and full wrist ROM Good elbow ROM Some weakness in small finger ADduction No swelling about her hand EMG nerve conduction study: Impression: 1. Mild bilateral median neuropathy across carpal tunnel 2. Mild bilateral ulnar neuropathy across cubital tunnel 3. Underlying peripheral neuropathy of axonal type Dr. Mock 02/27/2023 Please see his report for additional information as necessary: Psych Appearance: grossly normal Affect: normal affect Attitude: cooperative Assessment & Plan Assessment & Plan (1) Carpal tunnel syndrome of left wrist: Code(s): G56.02 - Carpal tunnel syndrome, left upper limb (2) Cubital tunnel syndrome on left: Code(s): G56.22 - Lesion of ulnar nerve, left upper limb (3) Carpal tunnel syndrome of right wrist: Code(s): G56.01 - Carpal tunnel syndrome, right upper limb (4) Cubital tunnel syndrome on right: Code(s): G56.21 - Lesion of ulnar nerve, right upper limb (5) Diabetes mellitus: Code(s): E11.9 - Type 2 diabetes mellitus without complications Plan Assessment and plan: 1. Left hand dysfunction without actual stiffness. She says this has been in place since her left proximal humerus fracture. Improving with OT hand therapy and at-home ROM I recommend she continue with ROM exercises & OT 2. Left carpal tunnel syndrome, mild She claimed she has dense numbness all the time. However, she claims that her her worst symptoms are at night, particularly painful symptoms. She will continue to wear her Velcro wrist splint for nighttime use only. 3. Left cubital tunnel syndrome, mild She had normal sensation to the small finger today in clinic but says it gets numb every night Weakness and small finger adduction Positive Froment sign, and this is bilaterally I educated her about this condition I discussed operative and non-operative treatment options The patient would like to proceed with surgery The risks and benefits of operative treatment were discussed with the patient and the patient wishes to proceed with surgery. These risks include, but are not limited to risk of damage to blood vessels, nerves, tendons, infection, recurrence, incomplete relief of preoperative symptoms, persistent pain, possible need for further surgery and the risks associated with regional blocks and anesthesia. The plan is to take the patient to the operating room sometime in the next few weeks for the following procedures: 1. Left carpal tunnel release, under general 2. Left cubital tunnel release vs transposition, under general All of the preoperative paperwork including the consent was filled out today. All the patient's questions were answered. The patient understands that they will be contacted by our motor bus driver soon to schedule this procedure She denies blood thinners, asthma, heart, lung, kidney issues She is a Diabetic and does not have a recent HgA1c. She says this is well- controlled and that her A1c is usually pretty good . I explained it needs to be <8.0% in order to proceed with surgery, and she expressed understanding. 4. Right carpal tunnel syndrome, mild 5. Right cubital tunnel syndrome, mild No complaints of right hand numbness today in clinic but she says she has some occasional numbness in the median nerve distribution We can discuss treatment for this at a later date Scribed for Kimberly Marcos MD by Barber Armenta, medical massage therapist, on 05/13/23 at 9:35 AM, EST. Coding Level of Care Code Est Pt Level 4 (49959) Diagnoses Carpal tunnel syndrome of left wrist G56.02 Cubital tunnel syndrome on left G56.22 Carpal tunnel syndrome of right wrist G56.01 Cubital tunnel syndrome on right G56.21 Diabetes mellitus E11.9
[2023-05-13 09:14] VITALS: BMI 25.0
== END 2023-05-13 09:43 | disposition home or self-care (01) ==
PROVIDERS: Visit Provider Orthopaedic Surgery
DX: G56.03 Carpal tunnel syndrome, bilateral upper limbs (principal); G56.23 Lesion of ulnar nerve, bilateral upper limbs
CPT/HCPCS: 99214

== ENCOUNTER → 2023-05-13 08:54 | Outpatient (BNVA) | payer OTHER, SELFPAY | PROVIDERS: Visit Provider Orthopaedic Surgery | DX: G56.03 Carpal tunnel syndrome, bilateral upper limbs (principal); G56.23 Lesion of ulnar nerve, bilateral upper limbs; E11.9 Type 2 diabetes mellitus without complications | CPT/HCPCS: 99212 ==

== ENCOUNTER 2023-06-02 06:01 | Day surgery (SDC) | payer OTHER, SELFPAY ==
[2023-05-29 08:06] VITALS: BMI 25.0
[2023-06-02] VITALS (9 sets, daily range): BP systolic 143–169; BP diastolic 57–85; PULSE 77–107; RESP 16–20; TEMP 36.2–36.8; O2SAT 96–98; BMI 25.9
[2023-06-02 06:29] LABS: Glucose, Whole Blood 200 mg/dL (60-115)
--- NOTE | 2023-06-02 07:25 | HO.ANESPROP2 ---
Documented by User: Merissa aGllardo NP 05/30/23 10:08 HPI - Anesthesia Eval Consult details Narrative: 48yo F for Left Cubital Tunnel Release vs transposition, Carpal Tunnel Release PMFSH Active Problems Active Problems: All Active Problems (Updated 05/13/23 @ 09:35 by Barber Armenta) Diabetes mellitus (Acute) Cubital tunnel syndrome on right (Acute) Carpal tunnel syndrome of right wrist (Acute) Cubital tunnel syndrome on left (Acute) Carpal tunnel syndrome of left wrist (Acute) Closed fracture of left proximal humerus (Acute) Right ankle sprain (Acute) Unresponsive episode (Acute) Hypoglycemia due to insulin (Acute) Impingement syndrome of left shoulder (Acute) Left shoulder pain (Acute) Malignant neoplasm of left kidney (Acute) Primary osteoarthritis of left knee (Acute) Past Medical History Medical History HTN (hypertension) Diabetes mellitus Malignant neoplasm of left kidney 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 Surgical History Surgical History S/P gastric surgery H/O bilateral oophorectomy History of kidney surgery History of hysterectomy Social History Social History Alcohol intake: never Patient Tobacco Use Status: Current everyday Tobacco user Tobacco use type: Cigarette Cigarettes Per Day: 3 Years Smoked: 26 Smoked in Last 30 Days: Yes Use of substances other than those prescribed or required for medical reasons: No Are you DNR?: No Advance Directives: No Advance Directives Information Provided: Yes Current occupational status: disabled Current occupation: rt hand Meds Allergies Allergy/AdvReac Type Severity Reaction Status Date / Time morphine [MORPHINE] Allergy Severe RASH Verified 06/02/23 06:12 LOBSTER Allergy Severe HIVES Uncoded 06/02/23 06:12 Home Medications Medication Instructions Recorded Confirmed Last Taken Type blood-glucose meter #1 ea 10/10/20 Unknown History insulin glargine 100 unit/mL (3 26 unit subcut DAILY 10/10/20 06/02/23 06/01/23 09:00 History mL) subcutaneous pen insulin syringe-needle U-100 0.5 #10 ea 10/10/20 Unknown History mL 31 gauge x 5/16 ondansetron HCl 4 mg tablet 4 mg PO Q8H PRN Nausea And Vomiting 10/10/20 06/02/23 03/29/21 History pen needle, diabetic 32 gauge x #50 ea 10/10/20 Unknown History gabapentin 300 mg capsule 1 cap PO BID 03/29/21 06/02/23 Unknown History insulin lispro 100 unit/mL See Rx Instructions .Route .COMPLEX 03/29/21 06/02/23 06/01/23 History subcutaneous solution (Admelog U-100 Insulin lispro) albuterol sulfate 90 mcg/actuation 2 puff inhalation Q4H PRN wheezing 08/19/22 06/02/23 Unknown History aerosol inhaler (Ventolin HFA) calcium carbonate 500 mg-vitamin 2 tab PO QAM 08/19/22 06/02/23 Unknown History D3 10 mcg (400 unit) tablet (Oyster Shell Calcium-Vitamin D3) cetirizine 10 mg tablet 10 mg PO DAILY 08/19/22 06/02/23 Unknown History fluoxetine 40 mg capsule 40 mg PO QPM 08/19/22 06/02/23 Unknown History hydroxyzine pamoate 50 mg capsule 50 mg PO TID PRN anxiety 08/19/22 06/02/23 Unknown History quetiapine 100 mg tablet 100 - 200 mg PO BEDTIME 08/19/22 06/02/23 Unknown History simvastatin 40 mg tablet 40 mg PO DAILY 08/19/22 06/02/23 Unknown History Exam Height,Weight and Vital Signs: Height 5 ft 5 in Weight 68.039 kg Assessment and Plan Assessment Anesthesia Assessment: Chart Reviewed Documented by User: Karoline Perez DO 06/02/23 07:27 [facility] Past Medical History Medical History HTN (hypertension) Diabetes mellitus Malignant neoplasm of left kidney 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 Family History Family history of problems with anesthesia: No Surgical History Surgical History S/P gastric surgery H/O bilateral oophorectomy History of kidney surgery History of hysterectomy History of Problems with Anesthesia: No Social History Social History Alcohol intake: never Patient Tobacco Use Status: Current everyday Tobacco user Tobacco use type: Cigarette Cigarettes Per Day: 3 Years Smoked: 26 Smoked in Last 30 Days: Yes Use of substances other than those prescribed or required for medical reasons: No Are you DNR?: No Advance Directives: No Advance Directives Information Provided: Yes Current occupational status: disabled Current occupation: rt hand Meds Allergies Allergy/AdvReac Type Severity Reaction Status Date / Time morphine [MORPHINE] Allergy Severe RASH Verified 06/02/23 06:12 LOBSTER Allergy Severe HIVES Uncoded 06/02/23 06:12 Home Medications Medication Instructions Recorded Confirmed Last Taken Type blood-glucose meter #1 ea 10/10/20 Unknown History insulin glargine 100 unit/mL (3 26 unit subcut DAILY 10/10/20 06/02/23 06/01/23 09:00 History mL) subcutaneous pen insulin syringe-needle U-100 0.5 #10 ea 10/10/20 Unknown History mL 31 gauge x 11/26 ondansetron HCl 4 mg tablet 4 mg PO Q8H PRN Nausea And Vomiting 10/10/20 06/02/23 03/29/21 History pen needle, diabetic 32 gauge x #50 ea 10/10/20 Unknown History gabapentin 300 mg capsule 1 cap PO BID 03/29/21 06/02/23 Unknown History insulin lispro 100 unit/mL See Rx Instructions .Route .COMPLEX 03/29/21 06/02/23 06/01/23 History subcutaneous solution (Admelog U-100 Insulin lispro) albuterol sulfate 90 mcg/actuation 2 puff inhalation Q4H PRN wheezing 08/19/22 06/02/23 Unknown History aerosol inhaler (Ventolin HFA) calcium carbonate 500 mg-vitamin 2 tab PO QAM 08/19/22 06/02/23 Unknown History D3 10 mcg (400 unit) tablet (Oyster Shell Calcium-Vitamin D3) cetirizine 10 mg tablet 10 mg PO DAILY 08/19/22 06/02/23 Unknown History fluoxetine 40 mg capsule 40 mg PO QPM 08/19/22 06/02/23 Unknown History hydroxyzine pamoate 50 mg capsule 50 mg PO TID PRN anxiety 08/19/22 06/02/23 Unknown History quetiapine 100 mg tablet 100 - 200 mg PO BEDTIME 08/19/22 06/02/23 Unknown History simvastatin 40 mg tablet 40 mg PO DAILY 08/19/22 06/02/23 Unknown History Exam Height,Weight and Vital Signs: Height 5 ft 5 in Weight 68.039 kg Vital Signs Temperature 98.3 F 06/02/23 06:19 Pulse Rate 77 06/02/23 06:19 Respiratory Rate 16 06/02/23 06:19 Blood Pressure 162/73 H 06/02/23 06:19 Pulse Oximetry 98 06/02/23 06:19 Oxygen Delivery Method Room Air 06/02/23 06:19 Temperature 98.3 F 06/02/23 06:19 Pulse Rate 77 06/02/23 06:19 Respiratory Rate 16 06/02/23 06:19 Blood Pressure 162/73 H 06/02/23 06:19 Pulse Oximetry 98 06/02/23 06:19 Oxygen Delivery Method Room Air 06/02/23 06:19 Height 5 ft 5 in Weight 70.488 kg Airway Mallampati Class: I TM Dist: >3cm Neck ROM: Full Loose/Missing/Broken Teeth: No Heart: S1S2 Lungs: CTAB Assessment and Plan Assessment Anesthesia Assessment: Anesthesia Plan Discussed and Chart Reviewed Final Anesthetic Review Family History of Problems with Anesthesia: No History of Problems with Anesthesia: No NPO: Yes ASA Class: II Final Preanesthetic Review: No Changes in Pt Med Stat, Meds/Allgs Chart Reviewed, Consent Obtained/Reviewed and Anes Risks/Benef Reviewed Patient Risk: Low Procedure Risk: Low Anesthetic Plan Anesthetic Plan: GA and Agree w/ Assess. and Plan Disposition: Standard PACU
[2023-06-02] MEDS: Lactated Ringers 1,000 ML 100 ML IVCONT (07:35)
--- NOTE | 2023-06-02 08:02 | MHC.SHP ---
Pre-Procedural Eval Section A Date of Service: 06/02/23 The patient is an INPATIENT: No Changes since office visit: No Cold of Flu in the past 2 weeks, No New Medical Problems, No Changes in Medication and No Patient answered all questions The History & Physical has been completed within 30 days and I have reviewed it.: Yes Section B Chief Complaint: Lesion of ulnar nerve, left upper limb,carpal tunn Allergies: Allergies Allergy/AdvReac Type Severity Reaction Status Date / Time morphine [MORPHINE] Allergy Severe RASH Verified 06/02/23 06:12 LOBSTER Allergy Severe HIVES Uncoded 06/02/23 06:12 Plan I have reviewed the history and physical and performed a pertinent physical examination on my patient. No changes have occurred unless specified. Time Spent With Patient Time: Total time managing care of this patient today ____ minutes.
--- NOTE | 2023-06-02 08:03 | W.PM.OPN ---
Operative Note Operative Note Date of Service: 06/02/23 Narrative: Operative Note Narrative: Preop diagnosis: 1. Left Cubital tunnel syndrome 2. Left carpal tunnel syndrome Postop diagnosis: Same Procedure: 1. Left Cubital Tunnel Release 2. Left carpal tunnel release Surgeon: Kimberly Marcos MD Anesthesia: General Anesthesia Findings: Thickening and fibrosis about the ulnar nerve at the cubital tunnel Implants: none Tourniquet time: 23minutes EBL: 5.0 ml Specimen: none Drains: None Complications: None Disposition: Brought to the recovery room in stable condition Plan: Follow-up in 10-14 days for wound check, and suture removal Indications: The patient is 48 years old with left cubital tunnel syndrome and left carpal tunnel syndrome . The risks and benefits of operative treatment, including but not limited to risk of damage to blood vessels, nerves, tendons, infection, recurrence, persistent pain or numbness, incomplete resolution of preoperative symptoms, or need for further surgery were discussed with the patient and they wished to proceed with surgery. Procedure: Once consent was obtained patient was brought back to the operating suite and placed in the operating table in a supine position. Perioperative antibiotics and anesthesia was administered by the anesthesia team. The limb was prepped and draped in a standard surgical fashion, and a sterile tourniquet applied to the proximal aspect of the left upper extremity. The limb was elevated exsanguinated with Esmarch bandage and the tourniquet inflated to 250 mm of mercury for a total tourniquet time of 23 minutes. Once assured that we had a good block, a 2.0 cm longitudinal incision was made centered over the left carpal tunnel. The incision was made through the skin to the subcutaneous tissues using a #15 blade. Dissection was made down to the level of the transverse carpal ligament with care being taken to protect the palmar cutaneous nerve. Once the transverse carpal ligament was clearly visualized, a longitudinal incision was made in the transverse carpal ligament 1st using a #15 blade, then using tenotomy scissors under direct visualization. Care was taken to look for and protect the motor branch of the median nerve when seen in this area. Once satisfied with our carpal tunnel release the wound was irrigated with normal saline. A 6 cm gently curved but longitudinally oriented incision was made centered over the cubital tunnel of the left upper extremity. Incision was made through the skin to the subcutaneous tissues using a # 15 Blade. I then dissected down to the level of the medial epicondyle and the cubital tunnel using tenotomy scissors. Care was taken to protect the lateral antebrachial cutaneous nerve. The ulnar nerve was identified just posterior to the medial intermuscular septum. The ulnar nerve was released in a proximal to distal direction using tenotomy in iris scissors while directly visualizing and protecting the ulnar nerve. Thickening and fibrosis was appreciated about the ulnar nerve as it passed through the cubital tunnel. The ulnar nerve was assessed as I passed the elbow through full flexion and extension and was found to remain stable within its groove. At this point the tourniquet was deflated and hemostasis obtained with a brief period of local pressure and bipolar electrocautery. The wound was copiously irrigated with normal saline. The subcutaneous layer was closed with 4-0 Vicryl suture, and the skin edges were reapproximated with 5-0 nylon suture. The wound was infiltrated with some 1% lidocaine with epinephrinefor postop pain control and sterile dressings were applied. The patient appears to have tolerated the procedure well and with no complications. All digits were well vascularized conclusion of the case.
[2023-06-02] MEDS: fentaNYL citrate/PF 100 MCG/2 ML VIAL 50 MCG IVPUSH ×2 (09:10→09:18)
[2023-06-02] MEDS: oxyCODONE HCl Immed Release 5 MG TABLET 10 MG PO (09:10)
== END 2023-06-02 10:37 | disposition home or self-care (01) ==
PROVIDERS: PCP Student in an Organized Health Care Education/Training Program; Visit Provider Orthopaedic Surgery
PROC: (CPT 64718; principal; 2023-06-02 07:30)
PROC: (CPT 64721; 2023-06-02 07:30)
DX: G56.02 Carpal tunnel syndrome, left upper limb (principal); G56.22 Lesion of ulnar nerve, left upper limb; R20.0 Anesthesia of skin; Z87.81 Personal history of (healed) traumatic fracture; G62.9 Polyneuropathy, unspecified; E11.9 Type 2 diabetes mellitus without complications; I10 Essential (primary) hypertension; Z79.4 Long term (current) use of insulin; Z79.899 Other long term (current) drug therapy; Z88.5 Allergy status to narcotic agent; Z85.528 Personal history of other malignant neoplasm of kidney; Z98.890 Other specified postprocedural states; Z98.84 Bariatric surgery status; F17.210 Nicotine dependence, cigarettes, uncomplicated
CPT/HCPCS: 64721; 64718; 82947; J0131; J0690; J2250; J2405; J2704; J2795; J3010

== ENCOUNTER → 2023-06-02 06:01 | Outpatient (BNV) | payer OTHER, SELFPAY | PROVIDERS: PCP Student in an Organized Health Care Education/Training Program; Visit Provider Orthopaedic Surgery | DX: G56.02 Carpal tunnel syndrome, left upper limb (principal); G56.22 Lesion of ulnar nerve, left upper limb | CPT/HCPCS: 64718; 64721 ==

== ENCOUNTER 2023-06-16 13:35 | Emergency (ER) | payer OTHER, SELFPAY ==
[2023-06-16 13:38] VITALS: BP 134/78; PULSE 82; O2SAT 94
[2023-06-16 13:54] VITALS: BP 105/56; PULSE 90; RESP 16; TEMP 35.1; O2SAT 98; BMI 27.4
--- NOTE | 2023-06-16 13:55 | ED_ITS ---
HPI - Chest Pain General Chief Complaint: Chest Pain Stated Complaint: CHEST/ABD PAIN PER EMS Time Seen by Provider: 06/16/23 13:46 Source: patient and EMS Mode of arrival: EMS Limitations: no limitations History of Present Illness HPI narrative: anxiety, patient intoxicated. Grandchild just , told she has an abdominal mass Onset (ago): week(s) Timing of current episode: constant Related Data Home Medications Medication Instructions Recorded Confirmed blood-glucose meter #1 ea 10/10/20 insulin glargine 100 unit/mL (3 26 unit subcut DAILY 10/10/20 06/02/23 mL) subcutaneous pen insulin syringe-needle U-100 0.5 #10 ea 10/10/20 mL 31 gauge x 11/26 ondansetron HCl 4 mg tablet 4 mg PO Q8H PRN Nausea And Vomiting 10/10/20 06/02/23 pen needle, diabetic 32 gauge x #50 ea 10/10/20 gabapentin 300 mg capsule 1 cap PO BID 03/29/21 06/02/23 insulin lispro 100 unit/mL See Rx Instructions .Route .COMPLEX 03/29/21 06/02/23 subcutaneous solution (Admelog U-100 Insulin lispro) albuterol sulfate 90 mcg/actuation 2 puff inhalation Q4H PRN wheezing 08/19/22 06/02/23 aerosol inhaler (Ventolin HFA) calcium carbonate 500 mg-vitamin 2 tab PO QAM 08/19/22 06/02/23 D3 10 mcg (400 unit) tablet (Oyster Shell Calcium-Vitamin D3) cetirizine 10 mg tablet 10 mg PO DAILY 08/19/22 06/02/23 fluoxetine 40 mg capsule 40 mg PO QPM 08/19/22 06/02/23 hydroxyzine pamoate 50 mg capsule 50 mg PO TID PRN anxiety 08/19/22 06/02/23 quetiapine 100 mg tablet 100 - 200 mg PO BEDTIME 08/19/22 06/02/23 simvastatin 40 mg tablet 40 mg PO DAILY 08/19/22 06/02/23 Previous Rx's Medication Instructions Recorded leg brace (Knee Support Brace) #1 ea 06/21/20 oxycodone-acetaminophen 5 mg-325 1 tab PO Q6H PRN pain #20 tabs 06/02/23 mg tablet Allergies Allergy/AdvReac Type Severity Reaction Status Date / Time morphine [MORPHINE] Allergy Severe RASH Verified 06/02/23 06:12 LOBSTER Allergy Severe HIVES Uncoded 06/02/23 06:12 Review of Systems 2 Review of Systems: Yes all other systems are reviewed and are negative Neurologic: Denies Sensory deficit (Neuro) [facility] Past Medical History Medical History HTN (hypertension) Diabetes mellitus Malignant neoplasm of left kidney 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 Surgical History S/P gastric surgery H/O bilateral oophorectomy History of kidney surgery History of hysterectomy Social History Social History Alcohol intake: never Comment: counts correct Patient Tobacco Use Status: Current everyday Tobacco user Tobacco use type: Cigarette Cigarettes Per Day: 3 Years Smoked: 26 Advance Directives: No Advance Directives Information Provided: No Current occupational status: disabled Current occupation: rt hand Physical Exam 2 Vital Signs: Vital Signs: Last Vital Signs Temp 95.2 F L 06/16/23 13:54 Pulse 90 06/16/23 13:54 Resp 16 06/16/23 13:54 BP 105/56 L 06/16/23 13:54 Pulse Ox 98 06/16/23 13:54 O2 Del Method Room Air 06/16/23 13:54 BMI result Body Mass Index 27.4 Const: Other: female, anxious, intoxicated, tearful Nutritional Appearance: average body habitus Orientation/consciousness: oriented to person and patient oriented x3 Limitations: no limitations HEENT: Head: Yes normal to inspection Ears: external ears normal General nose exam: Normal external nose present Mouth: Normal oral and palatal mucosa present and oropharynx normal Throat: Yes posterior oropharynx normal Eyes: General: appearance normal, both eyes and all related structures Neck: Other: supple Neck: Yes normal visual inspection Chest: Chest palpation & inspection: normal inspection of the chest Resp: Auscultation: clear to auscultation bilaterally Cardio: Jugular venous distension: no JVD Rate: regular rate Rhythm: r egular rhythm Heart sounds: S1 normal heart sound present and S2 normal heart sound present GI: Inspection: Yes normal to inspection Palpation (GI): Soft to palpation, nontender and No hepatosplenomegaly present Auscultation: normal bowel sounds : General: Yes no CVA tenderness Back/Spine/Pelvis: Back: no CVA tenderness Skin: General skin exam: no rashes or lesions noted Neuro: General: oriented to person and patient oriented x3 Cranial nerves: Yes CN's II-XII intact bilaterally Motor exam (neuro): 5/5 motor strength present throughout Sensory Exam: No Sensory deficit (Neuro) Extrem: General: Yes normal to inspection Psych: Other: tearful, intoxicated Course Reevaluation(s) Reevaluation #1: physician observation: patient placed in observation because she mentioned suicidal thoughts to EMS, she is stressed and intoxicated and has family stressors. Crisis to see patients. Time: 16:34 Medical Decision Making Lab Data 06/16/23 14:52 06/16/23 14:52 Labs: Lab Results 06/16/23 Range/Units 14:52 WBC 9.4 (4.8-10.8) X10*3/uL RBC 3.57 L (4.20-5.50) X10*6/uL Hgb 12.6 (12.0-16.0) g/dl Hct 36.7 L (37.0-47.0) % MCV 102.8 H (80.0-98.0) fL MCH 35.3 H (27.0-33.0) pg MCHC 34.3 (31.0-35.0) g/dl RDW 12.6 (11.0-16.0) % Plt Count 317 (160-400) X10*3/uL MPV 10.4 (9.4-12.3) fL Immature Gran % (Auto) 0.3 (0.0-0.4) % Neut % (Auto) 56.3 (45-73) % Lymph % (Auto) 33.7 (20-40) % Sharp % (Auto) 6.1 (2-11) % Eos % (Auto) 2.6 (0-4) % Baso % (Auto) 1.0 (0-2) % Lymph # (Auto) 3.2 (1.2-4.9) X10*3/uL Sharp # (Auto) 0.6 (0.1-1.2) X10*3/uL Eos # (Auto) 0.2 (0.0-0.4) X10*3/uL Baso # (Auto) 0.1 (0.0-0.2) X10*3/uL Abs Immat Gran (auto) 0.03 (0.00-0.03) X10*3/uL Absolute Neuts (auto) 5.3 (2.0-8.3) x10*3/uL Absolute Nucleated RBC 0.000 (0.0-0.012) X10*3/uL Nucleated RBC % (auto) 0.0 (0.0-0.2) /100WBC Sodium 137 (135-145) mmol/L Potassium 3.5 (3.3-5.1) mmol/L Chloride 103 (96-108) mmol/L Carbon Dioxide 20 L (22-29) mmol/L Anion Gap 18 (12-20) BUN 13 (9-16) mg/dL Creatinine 1.18 (0.5-1.4) mg/dL Estim Creat Clear Calc 61.8 Estimated GFR 48 Random Glucose 351 H* (60-115) mg/dL Calcium 10.0 D (8.4-10.2) mg/dL Troponin I High Sens < 2.7 (<3.5-17.0) ng/L Ethyl Alcohol 281 mg/dL Discharge Plan Discharge Clinical Impression: Depression, Alcohol intoxication Patient Disposition: Still a Patient Prescriptions: No Action (DME) Knee Support Brace Misc See Rx Instructions .MEDSUPPLY Qty: 1 0RF Rx Instructions: neoprene knee sleve oxycodone-acetaminophen 5-325 mg tablet 1 tab PO Q6H PRN (Reason: pain) Qty: 20 0RF Rx Instructions: Partial Fill upon patient request. gabapentin 300 mg capsule 1 cap PO BID Rx Instructions: per patient bid insulin lispro [Admelog U-100 Insulin lispro] 100 unit/mL solution See Rx Instructions .ROUTE .COMPLEX Rx Instructions: per patient: 1-15 units SQ up to 6/day Basaglar KwikPen U-100 Insulin 100 unit/mL (3 mL) insulin pen 26 unit subcut DAILY Rx Instructions: was 12 u bid previously (DME) blood-glucose meter Kit See Rx Instructions .ROUTE .MEDSUPPLY Qty: 1 Rx Instructions: As directed (DME) insulin syringe-needle U-100 0.5 mL 31 gauge x 5 syringe See Rx Instructions .ROUTE .MEDSUPPLY Qty: 10 Rx Instructions: As directed (DME) pen needle, diabetic 32 gauge x needle See Rx Instructions .ROUTE BID Qty: 50 Rx Instructions: As directed ondansetron HCl 4 mg tablet 4 mg PO Q8H PRN (Reason: Nausea And Vomiting) hydroxyzine pamoate 50 mg capsule 50 mg PO TID PRN (Reason: anxiety) quetiapine 100 mg tablet 100 - 200 mg PO BEDTIME calcium carbonate-vitamin D3 [Oyster Shell Calcium-Vit D3] 500 mg-10 mcg (400 unit) tablet 2 tab PO QAM cetirizine 10 mg tablet 10 mg PO DAILY fluoxetine 40 mg capsule 40 mg PO QPM simvastatin 40 mg tablet 40 mg PO DAILY albuterol sulfate [Ventolin HFA] 90 mcg/actuation HFA aerosol inhaler 2 puff inhalation Q4H PRN (Reason: wheezing)
[2023-06-16 14:56] LABS: MANUAL DIFF FLAG NO
[2023-06-16 15:00] LABS: Basophils Absolute Auto 0.1 X10*3/uL (0.0-0.2); Eosinophils Absolute Auto 0.2 X10*3/uL (0.0-0.4); Eosinophils Percent Auto 2.6 % (0-4); Hematocrit 36.7 % (37.0-47.0); Hemoglobin 12.6 g/dl (12.0-16.0); Imm Gran Abs Auto 0.03 X10*3/uL (0.00-0.03); Imm Gran Pct Auto 0.3 % (0.0-0.4); Lymphocytes Absolute Auto 3.2 X10*3/uL (1.2-4.9); Lymphocytes Percent Auto 33.7 % (20-40); Mean Corpuscular HGB Conc 34.3 g/dl (31.0-35.0); Mean Corpuscular Hemoglobin 35.3 pg (27.0-33.0); Mean Corpuscular Volume 102.8 fL (80.0-98.0); Mean Platelet Volume 10.4 fL (9.4-12.3); Monocytes Absolute Auto 0.6 X10*3/uL (0.1-1.2); Monocytes Percent Auto 6.1 % (2-11); Neutrophils Absolute Auto 5.3 x10*3/uL (2.0-8.3); Neutrophils Percent Auto 56.3 % (45-73); Platelet Count 317 X10*3/uL (160-400); Red Blood Count 3.57 X10*6/uL (4.20-5.50); Red Cell Distribution Width 12.6 % (11.0-16.0); White Blood Count 9.4 X10*3/uL (4.8-10.8)
[2023-06-16 15:12] LABS: Ethanol 281 mg/dL
[2023-06-16 15:18] LABS: Anion Gap 18 (12-20); Blood Urea Nitrogen 13 mg/dL (9-16); Carbon Dioxide 20 mmol/L (22-29); Chloride 103 mmol/L (96-108); Creatinine Clr Calc Pharmacy 61.8; Estimated Glomerular Filt Rate 48; Glucose Random 351 mg/dL (60-115); Potassium 3.5 mmol/L (3.3-5.1); Sodium 137 mmol/L (135-145)
--- NOTE | 2023-06-16 15:21 | MHC.EDTECH ---
EKG documented in error. Pt is refusing EKG at this time
[2023-06-16 15:25] LABS: Troponin-I High Sensitivity < 2.7 ng/L (<3.5-17.0)
--- NOTE | 2023-06-16 16:46 | MHC.EDTECH ---
pt vomited 1000 ml. vomit appeared complete liquid and dark brown in color. pt stating she feels nauseas. cate frank aware.
--- NOTE | 2023-06-16 16:53 | PC.NURSE ---
PT VOMITING APPROX 400ML OF STOMACH CONTENTS
[2023-06-16] MEDS: ondansetron HCL 4 MG/2 ML VIAL IVPUSH ×2 (17:05→21:21)
[2023-06-16 17:15] VITALS: BP 123/58; PULSE 87; RESP 17; TEMP 36.3; O2SAT 97
[2023-06-16 17:15] LABS: Glucose, Whole Blood 235 mg/dL (60-115)
--- NOTE | 2023-06-16 17:20 | PC.NURSE ---
md biswas notified poc 235- ordered to give insulin per sep. pt handed over from Matheus GOLDBERG to this rn
[2023-06-16] MEDS: Insulin Glargine,Hum.rec.anlog 100 UNIT/ML 10 ML VIAL 26 UNIT SUBCUT (17:27)
[2023-06-16] MEDS: Insulin Lispro 100 UNIT/ML 3 ML VIAL SUBCUT (17:27)
--- NOTE | 2023-06-16 19:05 | PC.NURSE ---
pt requesting to rn to leave- rn notified md pt growing agitated- pt is sectioned per md and cannot leave at this time.
[2023-06-16 19:44] LABS: Glucose, Whole Blood 35 mg/dL (60-115)
[2023-06-16 20:07] LABS: Glucose, Whole Blood 30 mg/dL (60-115)
[2023-06-16] MEDS: Dextrose 50 % 25 GM/50 ML SYRINGE IVPUSH (20:22)
[2023-06-16 20:40] LABS: Glucose, Whole Blood 208 mg/dL (60-115)
[2023-06-16 21:15] LABS: Glucose, Whole Blood 150 mg/dL (60-115)
--- NOTE | 2023-06-16 21:28 | PC.NURSE ---
Pt is vomiting and is unable to eat food. Zofran given. Pt tolerated well.
[2023-06-16 21:44] LABS: Glucose, Whole Blood 124 mg/dL (60-115)
[2023-06-16 22:19] LABS: Glucose, Whole Blood 131 mg/dL (60-115)
[2023-06-17 01:16] VITALS: BP 146/63; PULSE 91; RESP 16; TEMP 37.2; O2SAT 97
[2023-06-17] MEDS: 0.9 % Sodium Chloride 1,000 ML 999 ML IV (01:34)
[2023-06-17] MEDS: ondansetron HCL 4 MG/2 ML VIAL IVPUSH (01:34)
[2023-06-17 01:47] LABS: Glucose, Whole Blood 204 mg/dL (60-115)
--- NOTE | 2023-06-17 01:50 | PC.NURSE ---
Pt continues to report abd pain with N/V, 11/20. made aware. New order in SEP.
[2023-06-17 02:06] LABS: Lipase 16 U/L (8-78)
[2023-06-17] MEDS: Acetaminophen 325 MG TABLET 650 MG PO (04:07)
[2023-06-17 05:23] VITALS: BP 162/74; PULSE 80; RESP 16; TEMP 36.7; O2SAT 97
[2023-06-17 06:18] LABS: Amphetamine Screen Urine Not Detected (Not Detect); Barbiturates, Urine Not Detected (Not Detect); Benzodiazepines Screen Urine Not Detected (Not Detect); Cannabinoid Screen Urine Not Detected (Not Detect); Cocaine Screen Urine Not Detected (Not Detect); Fentanyl, urine Not Detected (Not Detect); Opiate Screen Urine Not Detected (Not Detect); Phencyclidine Screen Urine Not Detected (Not Detect)
[2023-06-17 07:24] LABS: Glucose, Whole Blood 192 mg/dL (60-115)
[2023-06-17 07:51] VITALS: BP 168/78; PULSE 85; RESP 16; TEMP 37; O2SAT 98
== END 2023-06-17 08:19 | disposition home or self-care (01) ==
PROVIDERS: Student in an Organized Health Care Education/Training Program; Emergency Provider Emergency Medicine; PCP Internal Medicine Rheumatology
DX: R07.89 Other chest pain (principal); F33.1 Major depressive disorder, recurrent, moderate; F41.9 Anxiety disorder, unspecified; F10.129 Alcohol abuse with intoxication, unspecified; Y90.8 Blood alcohol level of 240 mg/100 ml or more; Z71.6 Tobacco abuse counseling; Z63.4 Disappearance and death of family member; Z79.899 Other long term (current) drug therapy; F17.210 Nicotine dependence, cigarettes, uncomplicated
CPT/HCPCS: 36415; 80048; 80307; 82947; 83690; 83735; 84484; 85025; 96361; 96374; 96375; 96376; 99285; J2405; S9485

== ENCOUNTER 2023-06-17 08:29 | Outpatient (AMB) | payer OTHER, SELFPAY ==
--- NOTE | 2023-06-17 09:24 | MHC.OFFVIS ---
Intake Intake Visit Reasons: PO-Lt Cubital vs trans, Lt CTR Intake Note: Lucinda 48 yr old female presents today for her P/O visit for her Left Cubital & Left CTR from DOS 06/02/[address] Marcos. States numbness has improved. Allergies morphine [MORPHINE] Allergy (Severe, Verified 06/17/23 09:25) RASH LOBSTER Allergy (Severe, Uncoded 06/17/23 09:25) HIVES HPI PO-Lt Cubital vs trans, Lt CTR HPI Details Lucinda is a 48 year old right hand dominant woman who presents S/P left carpal tunnel release & cubital tunnel release, DOS: 06/02/23. She says her sensation has improved and feels more normal. She reports still having some tingling in her small finger but she is happy with her sensation improving. She has been icing her hand at times at home to help with any pain & inflammation. She was also treated non-operatively for a left proximal humerus fracture, DOI: 08/26/22. She says that in OT she also worked on improving her left shoulder motion. She is happy that she is improving her motion and use of her arm overall. She was seen in the ED last night for ETOH intoxication due to multiple stressors. According to the note this includes the of her grandchild. She presented for her appointment immediately following discharge from the ED. She did not mention this during her appointment today. [facility], [facility] Medical History HTN (hypertension) Diabetes mellitus Malignant neoplasm of left kidney 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 Surgical History S/P gastric surgery H/O bilateral oophorectomy History of kidney surgery History of hysterectomy Social History Alcohol intake: never Comment: counts correct Patient Tobacco Use Status: Current everyday Tobacco user Tobacco use type: Cigarette Cigarettes Per Day: 3 Years Smoked: 26 Current occupational status: disabled Current occupation: rt hand Review of Systems Const All systems reviewed & are unremarkable except as noted in HPI and below Physical Exam Const General: no acute distress and alert Orientation/consciousness: patient oriented x3 Neuro General: patient oriented x3 Extrem Other: The patient was alert oriented and in no acute distress The incisions are healing well with no erythema drainage or evidence of infection. Sutures removed and Steri-Strips applied Normal sensation in the median nerve distribution today in clinic Sensation is improved but not yet normal to the small finger. She can make a tight fist with good strength, and back into full extension She also has good active range of motion of the thumb as well Smooth and full wrist ROM Good elbow ROM No swelling about her hand Cap refill is brisk EMG nerve conduction study: Impression: 1. Mild bilateral median neuropathy across carpal tunnel 2. Mild bilateral ulnar neuropathy across cubital tunnel 3. Underlying peripheral neuropathy of axonal type Dr. Mock 02/27/2023 Please see his report for additional information as necessary: Psych Appearance: grossly normal Affect: normal affect Attitude: cooperative Assessment & Plan Assessment & Plan (1) Carpal tunnel syndrome of left wrist: Code(s): G56.02 - Carpal tunnel syndrome, left upper limb (2) Cubital tunnel syndrome on left: Code(s): G56.22 - Lesion of ulnar nerve, left upper limb (3) Carpal tunnel syndrome of right wrist: Code(s): G56.01 - Carpal tunnel syndrome, right upper limb (4) Cubital tunnel syndrome on right: Code(s): G56.21 - Lesion of ulnar nerve, right upper limb (5) Diabetes mellitus: Code(s): E11.9 - Type 2 diabetes mellitus without complications Plan Assessment and plan: 1. Left carpal tunnel syndrome, mild Pre-operative symptoms of dense numbness, worse at night, along with pain Now with normal sensation and good resolution of her nighttime symptoms 2. Left cubital tunnel syndrome, mild Pre-operative symptoms intermittent but nightly Now with improved but not yet normal sensation Preoperatively: Weakness and small finger adduction Positive Froment sign, and this is bilaterally The patient appears to be doing well post-operatively I educated her about the post-operative course I discussed activity modifications, she is to lift nothing heavier than a cellphone for the next two weeks She will perform gentle ROM exercises at home She should gently massage about the incision site to reduce the risk of hypersensitivity She will follow up prn 3. Left hand dysfunction without actual stiffness. She says this has been in place since her left proximal humerus fracture. Improving with OT hand therapy and at-home ROM I recommend she continue with ROM exercises & OT 4. Right carpal tunnel syndrome, mild 5. Right cubital tunnel syndrome, mild No complaints of right hand numbness today in clinic but she says she has some occasional numbness in the median nerve distribution We can discuss treatment for this at a later date Scribed for Kimberly Marcos MD by Barber Armenta, manager of medical, on 06/17/23 at 9:45 AM, EST. Coding Level of Care Code Global (72272) Diagnoses Carpal tunnel syndrome of left wrist G56.02 Cubital tunnel syndrome on left G56.22 Carpal tunnel syndrome of right wrist G56.01 Cubital tunnel syndrome on right G56.21 Diabetes mellitus E11.9
== END 2023-06-17 09:48 | disposition home or self-care (01) ==
PROVIDERS: Visit Provider Orthopaedic Surgery
DX: G56.02 Carpal tunnel syndrome, left upper limb (principal); G56.22 Lesion of ulnar nerve, left upper limb; G56.01 Carpal tunnel syndrome, right upper limb; G56.21 Lesion of ulnar nerve, right upper limb; E11.9 Type 2 diabetes mellitus without complications
CPT/HCPCS: 99024

== ENCOUNTER → 2023-06-17 08:29 | Outpatient (BNVA) | payer OTHER, SELFPAY | PROVIDERS: Visit Provider Orthopaedic Surgery | DX: Z48.811 Encounter for surgical aftercare following surgery on the nervous system (principal); G56.01 Carpal tunnel syndrome, right upper limb; G56.21 Lesion of ulnar nerve, right upper limb; E11.9 Type 2 diabetes mellitus without complications | CPT/HCPCS: 99212 ==

== ENCOUNTER 2023-09-16 08:29 | Outpatient (AMB) | payer OTHER, SELFPAY ==
--- NOTE | 2023-09-16 08:45 | A.OFFVIS_ITS ---
Intake Intake Visit Reasons: O/V s/p Left Cubital & Left CTR from DOS 06/02/23 Intake Note: Lucinda 48 yr old female presents today s/p Left Cubital & Left CTR from DOS 06/02/23. States she is having pain that radiates from her shoulder down her hand. Hx of fracture of left proximal humerus 09/01/22 . States she would like to discuss surgery for her right hand. EMG done. Allergies morphine [MORPHINE] Allergy (Severe, Verified 09/16/23 08:52) RASH LOBSTER Allergy (Severe, Uncoded 09/16/23 08:52) HIVES HPI O/V s/p Left Cubital & Left CTR from DOS 06/02/23 HPI Details Lucinda is a 48 year old right hand dominant Diabetic woman chief complaint today is of numbness and tingling in her right hand. She says the symptoms are intermittent but daily and primarily involve the thumb index middle and half the ring finger. She says she does not have trouble with numbness and tingling in the small finger or ulnar aspect of the hand. She also complains of some numbness and itchiness in the dorsal aspect of her right forearm and dorsal aspect of the hand. She says that her numbness and tingling in her left hand is significantly improved, but she still gets pain in the left shoulder and arm since her left proximal humerus fracture on 08/26/2022. She is S/P left carpal tunnel release & cubital tunnel release, DOS: 06/02/23, with good improvement in her sensation. She says she does not work currently. [facility] Medical History HTN (hypertension) Diabetes mellitus Malignant neoplasm of left kidney 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 Surgical History S/P gastric surgery H/O bilateral oophorectomy History of kidney surgery History of hysterectomy Social History Alcohol intake: never Comment: counts correct Patient Tobacco Use Status: Current everyday Tobacco user Tobacco use type: Cigarette Cigarettes Per Day: 3 Years Smoked: 26 Current occupational status: disabled Current occupation: rt hand Review of Systems Const All systems reviewed & are unremarkable except as noted in HPI and below Physical Exam Const General: no acute distress and alert Orientation/consciousness: patient oriented x3 Neuro General: patient oriented x3 Extrem Other: Evaluation of Right Upper Extremity: The patient is alert, oriented, and in no acute distress Neuro: Some decreased sensation in the median nerve distribution today in clinic. Normal sensation in the ulnar nerve distribution. Some complaints of tingling in the dorsum of her hand & forearm. No thenar or intrinsic wasting Good APB muscle belly firing and good finger cross In the left hand: Sensation is normal to the tips of all digits Vascular: No swelling about her hand Cap refill is brisk ROM: She can make a fist and extend all her digits Regarding the left hand: Sensation is now normal to the tips of all digits. EMG nerve conduction study: Impression: 1. Mild bilateral median neuropathy across carpal tunnel 2. Mild bilateral ulnar neuropathy across cubital tunnel 3. Underlying peripheral neuropathy of axonal type Dr. Mock 02/27/2023 Please see his report for additional information as necessary Psych Appearance: grossly normal Affect: normal affect Attitude: cooperative Assessment & Plan Assessment & Plan (1) Carpal tunnel syndrome of right wrist: Code(s): G56.01 - Carpal tunnel syndrome, right upper limb (2) Cubital tunnel syndrome on right: Code(s): G56.21 - Lesion of ulnar nerve, right upper limb (3) Diabetes mellitus: Code(s): E11.9 - Type 2 diabetes mellitus without complications Plan Assessment and plan: 1. Right carpal tunnel syndrome, mild With dense numbness I educated her about this condition I discussed operative and non-operative treatment options The patient would like to proceed with surgery The risks and benefits of operative treatment were discussed with the patient and the patient wishes to proceed with surgery. These risks include, but are not limited to risk of damage to blood vessels, nerves, tendons, infection, recurrence, incomplete relief of preoperative symptoms, persistent pain, possible need for further surgery and the risks associated with regional blocks and anesthesia. The plan is to take the patient to the operating room sometime in the next few weeks for the following procedures: 1. Right carpal tunnel release, under local All of the preoperative paperwork including the consent was reviewed today. All the patient's questions were answered. The patient understands that they will be contacted by our plastic surgery manager soon to schedule this procedure She denies blood thinners, asthma, heart, lung, kidney issues She is a Diabetic and says her most recent HgA1c was ~7.0%. She says she has an appointment with her PCP coming up and will ask for an updated HgA1c prior to surgery. I explained it needs to be <8.1% in order to proceed with surgery, and she expressed understanding. 2. Right cubital tunnel syndrome, mild No complaints today 3. Left carpal tunnel syndrome status post carpal tunnel release Pre-operative symptoms of dense numbness, worse at night, along with pain Now with normal sensation 4. Left cubital tunnel syndrome status post cubital tunnel release Pre-operative symptoms intermittent but nightly Now with normal sensation Scribed for Kimberly Marcos MD by Barber Armenta, medical office technician, on 09/16/23 at 8:55 AM, EST. Coding Level of Care Code Est Pt Level 4 (08591) Diagnoses Carpal tunnel syndrome of right wrist G56.01 Cubital tunnel syndrome on right G56.21 Diabetes mellitus E11.9
== END 2023-09-16 09:13 | disposition home or self-care (01) ==
PROVIDERS: Visit Provider Orthopaedic Surgery
DX: G56.03 Carpal tunnel syndrome, bilateral upper limbs (principal); G56.23 Lesion of ulnar nerve, bilateral upper limbs; E11.9 Type 2 diabetes mellitus without complications
CPT/HCPCS: 99214

== ENCOUNTER → 2023-09-16 08:29 | Outpatient (BNVA) | payer OTHER, SELFPAY | PROVIDERS: Visit Provider Orthopaedic Surgery | DX: G56.01 Carpal tunnel syndrome, right upper limb (principal); G56.21 Lesion of ulnar nerve, right upper limb; E11.9 Type 2 diabetes mellitus without complications | CPT/HCPCS: 99212 ==

== ENCOUNTER 2024-04-20 09:01 | Outpatient (AMB) | payer OTHER, SELFPAY ==
--- NOTE | 2024-04-20 09:04 | A.OFFVIS_ITS ---
Vital Signs 04/20/24 09:19 Height 5 ft 7 in Weight 140 lb BMI 21.9 Intake Visit Reasons: OV - Left elbow/wrist pain Intake Note: Lucinda is a 49 yo right hand dominant female who presents today for evaluation of pain on the left elbow and left wrist s/p Left Cubital & Left CTR DOS 06/02/[address] Marcos. Patient reports numbness and tingling at the left wrist, waking her up at night. She has been using an taina wrap sporadically to alleviate the pain. Denies finger locking. Patient was scheduled for right CTR December, but this was cancelled. She would like to discuss surgery today. Allergies morphine [MORPHINE] Allergy (Severe, Verified 04/20/24 09:16) RASH LOBSTER Allergy (Severe, Uncoded 04/20/24 09:16) HIVES HPI HPI OV - Left elbow/wrist pain: Details: Lucinda is a 49 year old right hand dominant Diabetic woman who returns today with complaints of left arm pain & weakness. She complains of pain the dorsal aspect of her left forearm. She says she has difficulty lifting objects or using her hand for other activities. This has been present for ~1 month now, and is intermittent. She says lifting plates are difficult for her. She denies any numbness in her fingers. She has a Hx of a left carpal & cubital tunnel release, DOS: 06/02/23, with normal sensation following surgery. She has right carpal tunnel syndrome. She has dense numbness in the index, middle, and ring finger of her right hand. She was scheduled for a right carpal tunnel release in 12/2023, but this was cancelled as she was hesitant to undergo surgery. She says she is reconsidering as her symptoms are worsening. She has a hx of left arm & shoulder pain following a proximal humerus fracture, DOI: 08/26/22 [facility] Medical History HTN (hypertension) Diabetes mellitus Malignant neoplasm of left kidney 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 Surgical History S/P gastric surgery H/O bilateral oophorectomy History of kidney surgery History of hysterectomy Social History (Reviewed 09/16/23 @ 08:54 by FIORDALIZA Larson Alcohol intake: never Comment: counts correct Patient Tobacco Use Status: Current everyday Tobacco user Tobacco use type: Cigarette Cigarettes Per Day: 3 Years Smoked: 26 Current occupational status: disabled Current occupation: rt hand Physical Exam Vital Signs: BMI result Body Mass Index 21.9 Const General: no acute distress and alert Orientation/consciousness: patient oriented x3 Neuro General: patient oriented x3 Extrem Other: Evaluation of Left Upper Extremity: The patient is alert, oriented, and in no acute distress Neuro: Median, Ulnar, Radial nerves motor and sensory intact and sensation is normal to the tips of all digits. Good sensation to the dorsal & ulnar aspect of her hand. No thenar or intrinsic wasting Good APB muscle belly firing and good finger cross Good strength with finger ABduction Vascular: No swelling about her hand Cap refill is brisk ROM: She can make a fist and extend all her digits No tenderness about the elbow No tenderness distal to the lateral epicondyle She complains of pain in the left dorsal forearm, ~8-10cm proximal to the wrist joint. Mild tenderness there. No swelling. No pain with resisted finger or wrist extension EMG nerve conduction study: Impression: 1. Mild bilateral median neuropathy across carpal tunnel 2. Mild bilateral ulnar neuropathy across cubital tunnel 3. Underlying peripheral neuropathy of axonal type Dr. Mock 02/27/2023 Please see his report for additional information as necessary Psych Appearance: grossly normal Affect: normal affect Attitude: cooperative Assessment & Plan Assessment & Plan (1) Carpal tunnel syndrome of right wrist: Code(s): G56.01 - Carpal tunnel syndrome, right upper limb Category: Medical (2) Cubital tunnel syndrome on right: Code(s): G56.21 - Lesion of ulnar nerve, right upper limb Category: Medical (3) Diabetes mellitus: Code(s): E11.9 - Type 2 diabetes mellitus without complications Category: Medical (4) Strain of left forearm: Code(s): S56.912A - Strain of unspecified muscles, fascia and tendons at forearm level, left arm, initial encounter Category: Medical Plan Assessment and plan: 1. Right carpal tunnel syndrome, mild With dense numbness I educated her about this condition I discussed operative and non-operative treatment options The patient would like to proceed with surgery The risks and benefits of operative treatment were discussed with the patient and the patient wishes to proceed with surgery. These risks include, but are not limited to risk of damage to blood vessels, nerves, tendons, infection, recurrence, incomplete relief of preoperative symptoms, persistent pain, possible need for further surgery and the risks associated with regional blocks and anesthesia. The plan is to take the patient to the operating room sometime in the next few weeks for the following procedures: 1. Right carpal tunnel release, under local All of the preoperative paperwork including the consent was reviewed today. All the patient's questions were answered. The patient understands that they will be contacted by our public health inspector soon to schedule this procedure She denies blood thinners, asthma, heart, lung, kidney issues She is a Diabetic and says her most recent HgA1c was ~7.1% when checked last week, we do not have these results on file. They will need an updated HgA1c that is <8.1% in order to proceed with surgery, and they expressed understanding. 2. Left dorsal central forearm strain In the interosseous area & dorsal myotendinous junctions, ~10cm proximal to wrist joint Likely secondary to lifting a heavy vaccuum film cleaner Onset ~1 month ago No pain with resisted wrist or finger extension I recommend she modify her activities to avoid any heavy lifting which cause her pain If her symptoms continue she can contact the clinic for a referral to OT hand therapy. 3. Right cubital tunnel syndrome, mild No complaints today 4. Left carpal tunnel syndrome, S/P release DOS: 06/02/23 Pre-operative symptoms of dense numbness, worse at night, along with pain Now with normal sensation 5. Left cubital tunnel syndrome, S/P release DOS: 06/02/23 Pre-operative symptoms intermittent but nightly Now with normal sensation With improved strength in the ulnar nerve distribution Scribed for Kimberly Marcos MD by Barber Armenta, medical assisting program director, on 04/20/24 at 9:55 AM, EST. Scribe Plan - Not visible on output: Scribed for Kimberly Marcos MD by Barber Armenta, medical assisting program director, on [ ] at [ ], EST. Coding Level of Care Code Est Pt Level 4 (63191) Diagnoses Carpal tunnel syndrome of right wrist G56.01 Cubital tunnel syndrome on right G56.21 Diabetes mellitus E11.9 Strain of left forearm S56.912A
[2024-04-20 09:19] VITALS: BMI 21.9
== END 2024-04-20 10:00 | disposition home or self-care (01) ==
PROVIDERS: Visit Provider Orthopaedic Surgery
DX: G56.01 Carpal tunnel syndrome, right upper limb (principal); G56.21 Lesion of ulnar nerve, right upper limb; E11.9 Type 2 diabetes mellitus without complications; S56.912A Strain of unspecified muscles, fascia and tendons at forearm level, left arm, initial encounter
CPT/HCPCS: 99214

== ENCOUNTER → 2024-04-20 09:01 | Outpatient (BNVA) | payer OTHER, SELFPAY | PROVIDERS: Visit Provider Orthopaedic Surgery | DX: G56.01 Carpal tunnel syndrome, right upper limb (principal); G56.21 Lesion of ulnar nerve, right upper limb; E11.9 Type 2 diabetes mellitus without complications; S56.912D Strain of unspecified muscles, fascia and tendons at forearm level, left arm, subsequent encounter | CPT/HCPCS: 99212 ==